=== PATIENT | male | born 1955 | race Caucasian/White ===

== ENCOUNTER 2017-01-23 18:20 | Emergency (ER) | payer SELFPAY ==
[~2017-01-23] VITALS: Ht 172.7 cm; Wt 81.5 kg
[~2017-01-23 18:20] MED LIST: ASPI-535 PO; ATOR20TA38 PO; BENA20TA65 PO; FURO-110 PO; GABA600T PO; LEVO500T10 PO
[2017-01-23 19:14] VITALS: Ht 172.7 cm; Wt 81.5 kg
[2017-01-24] MEDS ORDERED: MELA10CA PO (20:11)
[2017-01-24] MEDS ORDERED: LISI20TA11 PO (20:12)
[2017-01-24] MEDS ORDERED: BEN50 PO (20:12)
[2017-01-24] MEDS ORDERED: ERGO500037 PO (20:12)
[2017-01-24] MEDS ORDERED: FOLI-49 PO (20:13)
[2017-01-24] MEDS ORDERED: CIPR500T4 PO (20:13)
[2017-01-24] MEDS ORDERED: METR500T14 PO (20:14)
== END 2017-01-24 03:02 | disposition left against medical advice (07) ==
LOC: E/R 18:20
DX: Z53.21 Procedure and treatment not carried out due to patient leaving prior to being seen by health care provider (principal)

== ENCOUNTER 2017-01-24 12:04 | Inpatient (IN) | payer OTHER ==
[~2017-01-24] VITALS: Ht 170.2 cm; Wt 81.5 kg
[2017-01-24 17:30] LABS: ADD SCAN DIFF NO
[2017-01-24 17:32] LABS: BASOPHILS % 0.3 % (0.0-2.0); EOSINOPHILS # 0.3 10^3/ul (0.0-0.5); EOSINOPHILS % 2.1 % (0.0-7.0); HEMATOCRIT 31.4 % (42.0-52.0); HEMOGLOBIN 9.9 g/dl (14.0-18.0); LYMPHOCYTES # 1.6 10^3/ul (0.8-2.9); LYMPHOCYTES % 12.8 % (15.0-51.0); MEAN CORPUSCULAR HEMOGLOBIN 27.6 pg (29.0-33.0); MEAN CORPUSCULAR HGB CONC 31.5 g/dl (32.0-37.0); MEAN CORPUSCULAR VOLUME 87.5 fl (82.0-101.0); MEAN PLATELET VOLUME 8.2 fl (7.4-10.4); MONOCYTE # 1.1 10^3/ul (0.3-0.9); MONOCYTES % 8.5 % (0.0-11.0); NEUTROPHIL # 9.5 10^3/ul (1.6-7.5); PLATELET COUNT 633 10^3/UL (140-415); RED BLOOD COUNT 3.59 10^6/ul (4.70-6.10); RED CELL DISTRIBUTION WIDTH 13.9 % (11.5-14.5); WHITE BLOOD COUNT 12.7 10^3/ul (4.8-10.8)
[2017-01-24 17:41] LABS: ALBUMIN 3.8 g/dl (3.3-4.9); CHLORIDE 97 mmol/L (97-110); SODIUM 138 mmol/L (135-144)
[2017-01-24 17:42] LABS: POTASSIUM 4.6 mmol/L (3.5-5.1)
[2017-01-24 17:43] LABS: AMYLASE 45 U/L (11-123)
[2017-01-24 17:44] LABS: ALANINE AMINOTRANSFERASE 25 IU/L (13-69); ALKALINE PHOSPHATASE 99 IU/L (42-121); ANION GAP 20 (8-16); ASPARTATE AMINO TRANSFERASE 23 IU/L (15-46); BILIRUBIN,INDIRECT 0.1 mg/dl (0-1.1); BILIRUBIN,TOTAL 0.1 mg/dl (0.2-1.3); BLOOD UREA NITROGEN 21 mg/dl (7-20); CALCIUM 9.7 mg/dl (8.4-10.2); CARBON DIOXIDE 26 mmol/L (21-31); CREATININE 1.73 mg/dl (0.61-1.24); GLUCOSE 103 mg/dl (70-220); TOTAL PROTEIN 7.6 g/dl (6.1-8.1)
[2017-01-24 17:48] LABS: INR 1.14; PROTIME 14.6 Sec (12.2-14.2); PT RATIO 1.1
[2017-01-24 17:49] LABS: PARTIAL THROMBOPLASTIN TIME 34.5 Sec (25.0-35.0)
[2017-01-24 17:57] LABS: TROPONIN-I < 0.012 ng/ml (0.00-0.12)
[2017-01-24] MEDS ORDERED: CLINDAMYCIN 900 MG/D5W (PMX) 50 ML IVPB STA (19:05)
[2017-01-24] MEDS ORDERED: VANCOMYCIN 1 GM (PMX) 250 ML IVPB STA (19:05)
[2017-01-24] MEDS ORDERED: PIPER-TAZO 3.375 GM IV (PMX) 100 ML IVPB STA (19:05)
--- NOTE | 2017-01-24 19:49 | ERA ---
ER Documentation Chief Complaint Date/Time DATE: 01/24/17 TIME: 19:43 Chief Complaint left foot infection sent by dr tillman for admission. HPI This is a very pleasant 61-year-old male with a known history of type 1 diabetes for the past 54 years. The patient presents to the emergency department with a left foot infection. The patient indicates that in May 2016 he experienced a thermal burn to the plantar surface of the left foot after stepping on hot cement at a pool. The patient had been seen and evaluated at [facility] at [facility] at the time of the injury. He indicates that due to problems with his insurance there have been lapses in his treatment. 1 month ago he began treatment for further infection of the plantar surface of the left foot by Dr. Tillman. He was evaluated yesterday at [address] Tillman's clinic and instructed to immediately come to the emergency department to be further evaluated and admitted for IV antibiotics due to suspected osteomyelitis. The patient states he has had no fevers no shaking or chills. He denies any pain of the left foot but states he has neuropathy due to his diabetes. The patient indicates that he has been compliant with all instructions applying Santyl ointment and changing his dressing every day wrapped with Kerlix ROS All systems reviewed and are negative except as per history of present illness. Medications Home Meds Reported Medications Metronidazole* (Metronidazole*) 500 Mg Tablet, 500 MG PO TID, TAB 01/24/17 Ciprofloxacin Hcl* (Ciprofloxacin Hcl*) 500 Mg Tablet, 500 MG PO BID, #14 TAB 01/24/17 Folic Acid* (Folic Acid*) 1 Mg Tablet, 1 MG PO DAILY, TAB 01/24/17 Diphenhydramine Hcl* (Benadryl*) 50 Mg Cap, 50 MG PO QHS Y for ITCHING, CAP 01/24/17 Lisinopril* (Lisinopril*) 20 Mg Tablet, 20 MG PO DAILY, #30 TAB 01/24/17 Ergocalciferol (Vitamin D2) (VITAMIN D2) 50,000 Unit Capsule, 79492 UNIT PO Q7D , CAP 01/24/17 Melatonin (Melatonin) 10 Mg Capsule, 20 MG PO HS, CAP 01/24/17 Gabapentin* (Neurontin*) 600 Mg Tablet, 600 MG PO TID, TAB 10/09/15 Atorvastatin Calcium* (Atorvastatin Calcium*) 20 Mg Tablet, 20 MG PO HS, TAB 04/07/14 Aspirin Ec (Aspir 81) 81 Mg Tablet.dr, 81 MG PO DAILY 04/07/14 Discontinued Reported Medications Benazepril Hcl* (Lotensin*) 20 Mg Tablet, 20 MG PO DAILY, TAB 04/07/14 Discontinued Scripts Levofloxacin* (Levofloxacin*) 500 Mg Tablet, 500 MG PO DAILY, #4 TAB 1 tablet daily for 4 days Prov:MIRELLA WATKINS 10/15/15 Furosemide* (Lasix*) 20 Mg Tablet, 20 MG PO DAILY for 30 Days, TAB 1 Refill Prov:TOY PRESTON S. 01/14/15 Allergies Allergies: Coded Allergies: No Known Drug Allergies (Unverified Allergy, Unknown, 01/24/17) PMhx/Soc History of Surgery: Yes (lt. shoulder repair, bilat hand surgery,appy,cateracts ,eye surgery,lt knee ) Anesthesia Reaction: No Hx Neurological Disorder: No Hx Respiratory Disorders: No Hx Cardiac Disorders: Yes (htn) Hx Psychiatric Problems: Yes (depression) Hx Miscellaneous Medical Probl: Yes (SHOULDER REPAIR, OBESITY) Hx Alcohol Use: Yes (1-2 beers/ night) Hx Substance Use: No Hx Tobacco Use: No Smoking Status: Never smoker Physical Exam Vitals Vital Signs Date Time Temp Pulse Resp B/P Pulse Ox O2 Delivery O2 Flow Rate FiO2 01/24/17 18:49 83 16 167/77 100 Room Air 01/24/17 12:09 97.8 51 20 162/70 98 Physical Exam Constitutional:Well-developed. Well-nourished. HEENT:Normocephalic. Atraumatic.Pupils were equal round reactive to light. Moist mucous membranes.No tonsillar exudates. Neck: No nuchal rigidity. No lymphadenopathy. No posterior cervical spine tenderness or step-offs. Respiratory: Not using accessory muscles of respiration.Lungs were clear to auscultation bilaterally. No rhonchi. No rales. No wheezing. Cardiovascular: Regular rate regular rhythm.No murmurs. No rubs were appreciated.S1, S2 normal. Distal pulses are palpable 2+ bilaterally. GI: Abdomen was soft. Nontender. Non Distended. No pulsatile abdominal masses or bruits. No rebound. No guarding. Bowel sounds were present and normal. Muscle skeletal: Full range of motion of both the upper and lower extremities bilaterally.Normal muscle tone.No assymetrical calf tenderness or swelling. Skin: No petechia, no purpura. No lesions on the palms or the soles of the feet. No maculopapular rash. Well-circumscribed 2 cm diameter area purulent drainage with stage II ulcer of the lateral aspect of the left proximal fifth metatarsal. No subcutaneous emphysema. NEURO: Patient was alert, awake, orientated x3.No facial droop. Gait observed and normal with no ataxia.Speech had regular rate and rhythm. No focal neurological deficits. Result Diagram: 01/24/17 1720 01/24/17 1720 Results 24 hrs Laboratory Tests Test 01/24/17 17:20 Activated Partial Thromboplast Time 34.5Sec Alanine Aminotransferase (ALT/SGPT) 25IU/L Albumin 3.8g/dl Albumin/Globulin Ratio 1.00 Alkaline Phosphatase 99IU/L Amylase Level 45U/L Anion Gap 20 Aspartate Amino Transf (AST/SGOT) 23IU/L Basophils # 0.010^3/ul Basophils % 0.3% Blood Urea Nitrogen 21mg/dl Calcium Level 9.7mg/dl Carbon Dioxide Level 26mmol/L Chloride Level 97mmol/L Creatinine 1.73mg/dl Direct Bilirubin 0.00mg/dl Eosinophils # 0.310^3/ul Eosinophils % 2.1% Globulin 3.80g/dl Glucose Level 103mg/dl Hematocrit 31.4% Hemoglobin 9.9g/dl INR International Normalized Ratio 1.14 Indirect Bilirubin 0.1mg/dl Lipase 15U/L Lymphocytes # 1.610^3/ul Lymphocytes % 12.8% Mean Corpuscular Hemoglobin 27.6pg Mean Corpuscular Hemoglobin Concent 31.5g/dl Mean Corpuscular Volume 87.5fl Mean Platelet Volume 8.2fl Monocytes # 1.110^3/ul Monocytes % 8.5% Neutrophils # 9.510^3/ul Neutrophils % 75.0% Nucleated Red Blood Cells # 0.010^3/ul Nucleated Red Blood Cells % 0.0/100WBC Platelet Count 99938^3/UL Potassium Level 4.6mmol/L Prothrombin Time 14.6Sec Prothrombin Time Ratio 1.1 Red Blood Count 3.5910^6/ul Red Cell Distribution Width 13.9% Sodium Level 138mmol/L Total Bilirubin 0.1mg/dl Total Protein 7.6g/dl Troponin I < 0.012ng/ml White Blood Count 12.710^3/ul Current Medications Medications (Trade) Dose Ordered Sig/Zelda Route PRN Reason Start Time Stop Time Status Last Admin Dose Admin Vancomycin HCl 250 ml @ 125 mls/hr ONCE STAT IVPB 01/24/17 19:05 01/24/17 21:04 Clindamycin HCl/ Dextrose 50 ml @ 50 mls/hr ONCE STAT IVPB 01/24/17 19:05 01/24/17 20:04 DC Piperacillin Sod/ Tazobactam Sod (Zosyn 3.375gm/ 100 ml (Pmx)) 100 ml @ 100 mls/hr ONCE STAT IVPB 01/24/17 19:05 01/24/17 20:04 DC 01/24/17 19:22 Procedures/MDM The patient presented to the emergency department with a spreading erythematous superficial infection of the skin and subcutaneous tissues of the left foot. My differential diagnosis included but was not limited to necrotizing fasciitis, lymphangitis, thrombophlebitis, deep vein thrombosis, allergic reaction, neoplasm, gout or abscess. Predisposing factors of the progressive spread of erythema, warmth, pain and tenderness was considered such as lymphedema, tinea pedis, open wounds, prior trauma or surgery, pre-existing skin lesion (furuncle), retained foreign body, injection drug use or vascular or immune compromise. The patient was placed on antibiotics to cover Staphylococcus aureus, including resistant strains such as community-acquired methicillin-resistant S. aureus with broad-spectrum antibiotics as I was concerned with osteomyelitis. The patient received IV clindamycin vancomycin and Zosyn after blood cultures and wound cultures have been obtained. I placed a call to the patient's loan administrator Dr. Tillman to inform him that the patient is here in the emergency department. I have ordered an MRI to be obtained at the left foot. The patient had mild leukocytosis with a white blood cell count of 12.7. The patient's blood glucose was 103 with no evidence of ketosis. The patient will be admitted in serious condition to the hospitalist Dr. Preston with an anticipated stay of greater than 2 midn[address]. I spoke with Dr. Tillman on the phone he stated he will be consulted on the patient. I also spoke with Keon, the nurse practitioner for Dr. Hayes who kindly stated they will also evaluate the patient from an infectious disease perspective Departure Diagnosis: Primary Impression: Osteomyelitis Qualified Code: M86.172 - Acute osteomyelitis of left foot Condition: Serious MILINDBOBBY Jan 24, 2017 19:48
[2017-01-24] MEDS ORDERED: ONDANSETRON 4 MG INJ IV PRN ×2 (20:00→20:30)
[2017-01-24] MEDS ORDERED: ACETAMINOPHEN 325 MG TAB PO PRN ×2 (20:00→20:30)
[2017-01-24] MEDS ORDERED: MELA10CA PO (20:11)
[2017-01-24] MEDS ORDERED: BEN50 PO (20:12)
[2017-01-24] MEDS ORDERED: ERGO500037 PO (20:12)
[2017-01-24] MEDS ORDERED: LISI20TA11 PO (20:12)
[2017-01-24] MEDS ORDERED: CIPR500T4 PO (20:13)
[2017-01-24] MEDS ORDERED: FOLI-49 PO (20:13)
[2017-01-24] MEDS ORDERED: METR500T14 PO (20:14)
[2017-01-24] MEDS ORDERED: DOCUSATE SODIUM 100 MG CAP PO PRN (20:30)
[2017-01-24] MEDS ORDERED: NACL 0.9% 3 ML SYG IV SCH (20:30)
[2017-01-24] MEDS ORDERED: LORAZEPAM 2 MG INJ IV PRN (20:30)
[2017-01-24] MEDS ORDERED: NA PHOSPHATE/BIPHOS 133 ML ENEMA PR PRN (20:30)
[2017-01-24] MEDS ORDERED: ALBUTEROL/IPRATROPIUM (NEB) 3 ML AMP HHN PRN (20:30)
[2017-01-24] MEDS ORDERED: hydrALAzine 20 MG INJ IV PRN (20:30)
[2017-01-24] MEDS ORDERED: VANCOMYCIN IV PER PHARMACY XX SCH (20:30)
[2017-01-24] MEDS ORDERED: NITROGLYCERIN (SL) 0.4 MG TAB SL PRN (20:30)
[2017-01-24] MEDS ORDERED: morphine 2 MG INJ IV PRN (20:30)
[2017-01-24] MEDS ORDERED: MAGNESIUM HYDROXIDE 30ML CUP PO PRN (20:30)
[2017-01-24] MEDS ORDERED: HYDROCODONE/APAP (5/325) TAB PO PRN (20:30)
[2017-01-24] MEDS ORDERED: GLUCOSE GEL 15 GRAM TUBE BUCCAL PRN (21:00)
[2017-01-24] MEDS ORDERED: GLUCOSE GEL 15 GRAM TUBE PO PRN ×2 (21:00)
[2017-01-24] MEDS ORDERED: MELATONIN 20 MG PO SCH (21:00)
[2017-01-24] MEDS ORDERED: GLUCAGON 1 MG INJ IM PRN (21:00)
[2017-01-24] MEDS ORDERED: DEXTROSE 50% 50 ML SYRINGE IV PRN ×2 (21:00)
[2017-01-24] MEDS ORDERED: GABAPENTIN 300 MG CAP PO SCH (21:00)
[2017-01-24 21:48] LABS: INR 1.16; PROTIME 14.8 Sec (12.2-14.2); PT RATIO 1.2
[2017-01-24 21:49] LABS: PARTIAL THROMBOPLASTIN TIME 33.9 Sec (25.0-35.0)
[2017-01-24 22:00] VITALS: Ht 170.2 cm; Wt 81.5 kg
[2017-01-24] MEDS: INSULIN ASPART [NOVOLOG] 3 ML PEN SC SCH (22:00)
[2017-01-24 22:30] VITALS: BP 158/72; PULSE 50; RESP 20
[2017-01-24] MEDS ORDERED: VANCOMYCIN 500MG/NS (PMX) 100 ML IVPB ONE (23:00)
[2017-01-24] MEDS: HEPARIN 5,000 UNIT/0.5 ML SYG SC SCH (23:38)
[2017-01-25] MEDS: INSULIN ASPART [NOVOLOG] 3 ML PEN SC SCH ×6 (01:00→20:32)
--- NOTE | 2017-01-25 01:30 | RADRPT ---
PROCEDURE: MR Foot. CLINICAL INDICATION: N TECHNIQUE: Noncontrast MRI of the left foot, with axial, sagittal and coronal images. T1-weighted and STIR sequences were employed. COMPARISON: No prior studies are available for comparison. FINDINGS: Abnormal signal on T1-weighted and fluid-sensitive sequences within the entire fifth metatarsal comp atible with osteomyelitis. Soft tissue defect at the lateral aspect of the expected location of the head of the fifth metatarsal, with full-thickness ulceration extending from the skin to the perioste um of the fifth metatarsal, and there is a fluid collection over the diaphysis of the fifth metatars al, suggesting an abscess. This fluid collection also appears to be contiguous with the periosteum o f the fifth metatarsal, at least distally. Plain film examination would be of further use to evaluate extent of osseous destruction in the fift h metatarsal. Today's MRI series suggests complete or near complete destruction of the head of the fifth metatarsal. Remaining osseous structures without evident osteomyelitis. Soft tissue edema over the foot. Increa sed fluid signal within the interosseous muscles of the forefoot can be seen in association with ear ly neuropathic changes. IMPRESSION: 1. Osteomyelitis of the entire fifth metatarsal of the left foot, with complete versus near complet e destruction of the head of the fifth metatarsal. 2. Soft tissue ulceration at the lateral aspect of the expected location of the head of the fifth m etatarsal, with fistulous connection between the skin and the periosteum of the fifth metatarsal. 3. Fluid collection over the diaphysis of the fifth metatarsal suggesting abscess. 4. Remaining osseous structures are without evident osteomyelitis. RPTAT: [facility] Physician Jil Date Time Electronically viewed and signed by Physician Jil on 01/25/2017 01:30 RS/
[2017-01-25] MEDS: PIPER-TAZO 3.375 GM IV (PMX) 100 ML IVPB SCH ×4 (01:37→17:31)
[2017-01-25] MEDS: ATORVASTATIN 20 MG TAB PO SCH (02:06)
[2017-01-25] MEDS: GABAPENTIN 300 MG CAP PO SCH (02:06)
[2017-01-25] MEDS: SOD CHLORIDE 0.45% 1,000 ML IV SCH ×4 (02:08→22:59)
[2017-01-25] MEDS: DIPHENHYDRAMINE 50 MG CAP PO PRN (02:08)
[2017-01-25] MEDS ORDERED: MELATONIN 10 MG PO SCH (02:25)
[2017-01-25] MEDS: MELATONIN 10 MG PO SCH (02:29)
[2017-01-25] MEDS: PANTOPRAZOLE (EC) 40 MG TAB PO SCH (05:35)
[2017-01-25] MEDS ORDERED: PIPER-TAZO 2.25 GM (PMX) 50 ML IVPB SCH (06:00)
--- NOTE | 2017-01-25 06:22 | HP ---
DATE OF ADMISSION: 01/24/2017 CHIEF COMPLAINT: Left foot pain and infection. HISTORY OF PRESENT ILLNESS: A 61-year-old male with a past medical history of peripheral vascular d isease, type 1 diabetes, depression and hypertension, who comes in with left foot infection and pain . Apparently, the patient first started having symptoms in May of 2016 after experiencing a burn t o the plantar surface of the left foot. Over that time he has been treated off and on sporadically for foot infections and has been seeing most recently Dr. Olvin Tillman, the enterprise applications manager[facility]. Apparently, he was instructed by Dr. Tillman's clinic to come to the emergency room due to suspected osteomyelitis of the left foot. Denies fevers or chills. No upper or lower GI bl eeding. No diarrhea or constipation, no nausea or vomiting. Apparently, the patient has been compl iant with applying Santyl ointment at home and changing his dressings every day, and wrap with Kerli x. When he came into the ER today, he had a MRI of the foot performed that did show osteomyelitis of the entire fifth metatarsal of the left foot, with complete versus near complete destruction of the head of the 5th metatarsal. There is soft tissue ulceration at the lateral aspect of the expected l ocation of the head of the 5th metatarsal, with fistulous connection between the skin and the perios teum of the 5th metatarsal, fluid collection over the diaphysis of the 5th metatarsal, suggesting ab scess. Remaining osseous structures are without evident osteomyelitis. The patient received an ant ibiotic dose in the ER. PAST MEDICAL HISTORY: As stated above. ALLERGIES: NO KNOWN DRUG ALLERGIES. HOME MEDICATIONS: 1. Benadryl 50 mg at bedtime p.r.n. 2. Ciprofloxacin 500 mg b.i.d. 3. Flagyl 500 mg p.o. t.i.d. 4. Atorvastatin 20 mg at bedtime. 5. Lisinopril 20 mg daily. 6. Aspirin 81 mg daily. 7. Gabapentin 600 mg t.i.d. 8. Vitamin D2 50,000 units q. weekly. 9. Folic acid 1 mg daily. 10. Melatonin 20 mg at bedtime. PAST SURGICAL HISTORY: It looks like shoulder repair in the past, bilateral hand surgery in the pas t, appendectomy in the past, cataract surgery in the past, and knee surgery in the past. SOCIAL HISTORY: Negative for IV drug abuse or smoking, but he does drink 1 to 2 beers a night. FAMILY HISTORY: Noncontributory. PHYSICAL EXAMINATION: VITAL SIGNS: Today T-max 97.8, pulse 51 to 83, respirations 16 to 20, blood pressure 167/77, satura ting at 100% on room air. GENERAL: The patient is lying in bed, answering questions appropriately, in no acute distress. HEENT: Pupils are equal, round, and react to light. Extraocular muscles intact. NECK: Supple. No thyromegaly. LUNGS: Clear to auscultation bilaterally. CARDIOVASCULAR: S1, S2 heard. No rubs or gallops. ABDOMEN: Soft, nontender, nondistended. Normal bowel sounds. No rebound or guarding. MUSCULOSKELETAL: On the left foot there is a well circumscribed 2-cm diameter area with purulent dr ainage and ulcer on the lateral aspect of the left proximal 5th metatarsal. Otherwise no lower extre mity edema bilaterally. NEUROLOGIC: No focal deficits. LABORATORIES: WBC 12.7, hemoglobin 9.9, hematocrit 31.4, platelets 633. Sodium 138, potassium 4.6, chloride 97, CO2 26, BUN 21, creatinine 1.7, glucose 103. LFTs are normal. Troponin is negative x 1. Lipase was normal. Amylase was normal. The imaging studies as mentioned above in the HPI. ASSESSMENT AND PLAN: A 61-year-old male with left foot pain and swelling, with signs of abscess and left foot osteomyelitis of the 5th metatarsals. 1. Left foot pain secondary most likely to left foot osteomyelitis and abscess. Admit the patient to the med/surg floor. Will get a podiatry and infectious disease consult, put him on broad-spectru m antibiotics, get wound culture, follow up blood culture results. Check TSH, A1c, lipid panel. Ty lenol p.r.n. pain and fevers. Morphine and Ault p.r.n. for pain. 2. Type 1 diabetes. Follow up A1c results and put the patient on sliding scale insulin. 3. History of peripheral vascular disease. Again, continue current medications of aspirin and Neur ontin. 4. History of hypertension. Blood pressure is presently high normal range. Continue hydralazine a nd clonidine p.r.n. for greater than 160. 5. Gastrointestinal prophylaxis. PPI. 6. Deep venous thrombosis prophylaxis. Heparin subcutaneously. Dictated By: TOY MARQUIS Conf#: [id number] DID#: [id number]
[2017-01-25 06:31] LABS: ADD SCAN DIFF NO
[2017-01-25 06:41] LABS: BASOPHIL # 0.1 10^3/ul (0.0-0.1); BASOPHILS % 0.5 % (0.0-2.0); EOSINOPHILS # 0.4 10^3/ul (0.0-0.5); EOSINOPHILS % 2.5 % (0.0-7.0); HEMATOCRIT 28.7 % (42.0-52.0); HEMOGLOBIN 9.3 g/dl (14.0-18.0); LYMPHOCYTES # 2.4 10^3/ul (0.8-2.9); LYMPHOCYTES % 17.1 % (15.0-51.0); MEAN CORPUSCULAR HEMOGLOBIN 28.3 pg (29.0-33.0); MEAN CORPUSCULAR HGB CONC 32.4 g/dl (32.0-37.0); MEAN CORPUSCULAR VOLUME 87.2 fl (82.0-101.0); MEAN PLATELET VOLUME 8.7 fl (7.4-10.4); MONOCYTE # 1.4 10^3/ul (0.3-0.9); MONOCYTES % 10.4 % (0.0-11.0); NEUTROPHIL # 9.6 10^3/ul (1.6-7.5); NEUTROPHILS % 68.7 % (39.0-77.0); PLATELET COUNT 648 10^3/UL (140-415); RED BLOOD COUNT 3.29 10^6/ul (4.70-6.10); WHITE BLOOD COUNT 13.9 10^3/ul (4.8-10.8)
[2017-01-25 07:09] LABS: POTASSIUM 4.3 mmol/L (3.5-5.1)
[2017-01-25 07:11] LABS: CREATININE 1.71 mg/dl (0.61-1.24)
[2017-01-25 07:12] LABS: CALCIUM 8.7 mg/dl (8.4-10.2); PHOSPHORUS 3.6 mg/dl (2.5-4.9)
[2017-01-25 07:13] LABS: CHOL/HDL RATIO 3.5 RATIO; MAGNESIUM 1.8 mg/dl (1.7-2.5)
[2017-01-25 07:33] LABS: THYROID STIMULATING HORMONE 1.19 MIU/L (0.465-4.680)
[2017-01-25 08:39] VITALS: BP 122/54; RESP 18
[2017-01-25 08:45] LABS: ADD UMIC YES; URINE BILIRUBIN (Dip) NEGATIVE (NEGATIVE); URINE BLOOD (Dip) TRACE (NEGATIVE); URINE COLOR LT. YELLOW (YELLOW); URINE GLUCOSE (Dip) NEGATIVE (NEGATIVE); URINE KETONES (Dip) NEGATIVE (NEGATIVE); URINE LEUKOCYTE ESTERASE (Dip) NEGATIVE (NEGATIVE); URINE NITRITE (Dip) NEGATIVE (NEGATIVE); URINE TOTAL PROTEIN (Dip) 1+ (NEGATIVE); URINE UROBILINOGEN (Dip) 0.2 E.U./dL (0.1-1.0)
[2017-01-25] MEDS ORDERED: FOLIC ACID 1 MG TAB PO SCH (09:00)
[2017-01-25] MEDS ORDERED: ASPIRIN (EC) 81 MG TAB PO SCH (09:00)
[2017-01-25 09:35] LABS: URINE RBCS 0-2 /HPF (0)
[2017-01-25] MEDS: HUMALOG PUMP SC SCH ×3 (09:59→17:34)
[2017-01-25] MEDS ORDERED: VANCOMYCIN 1.25 GM in SOD CHLORIDE 0.9% 250 ML IVPB SCH ×2 (11:00→22:00)
[2017-01-25] MEDS: HEPARIN 5,000 UNIT/0.5 ML SYG SC SCH ×2 (11:57→20:34)
[2017-01-25] MEDS: COLLAGENASE 30 GM TUBE TOP SCH (17:31)
--- NOTE | 2017-01-25 17:32 | CONS ---
Date/Time of Note Date/Time of Note DATE: 01/25/17 TIME: 17:27 Assessment/Plan Assessment/Plan Chief Complaint/Hosp Course SIRS L foot cellulitis/OM/abscess DM PVD HTN ARF Anemia Abx: Vanco Zosyn Plan: Continue abx, f/u final cx, podiatry rec-s, MRSA swab [facility] staff Problems: Consultation Date/Type/Reason Admit Date/Time Jan 24, 2017 at 19:34 Type of Consultation: ID Referring Provider: TOY PRESTON Social History Smoking Status: Never smoker Exam/Review of Systems Vital Signs Vitals Vital Signs Date Time Temp Pulse Resp B/P Pulse Ox O2 Delivery O2 Flow Rate FiO2 01/25/17 08:39 99.7 47 18 122/54 95 01/24/17 22:30 Room Air Intake and Output 01/24/17 01/24/17 01/25/17 15:00 23:00 07:00 Intake Total 1025 ml Balance 1025 ml Results Result Diagram: 01/25/17 0541 01/25/17 0541 Results 24 hrs Laboratory Tests Test 01/24/17 20:45 01/25/17 05:30 01/25/17 05:41 01/25/17 06:06 Activated Partial Thromboplast Time 33.9 Free Thyroxine 1.14 INR International Normalized Ratio 1.16 Prothrombin Time 14.8 H Prothrombin Time Ratio 1.2 Bedside Glucose 59 L 159 Anion Gap 17 H Basophils # 0.1 Basophils % 0.5 Blood Urea Nitrogen 19 Calcium Level 8.7 Carbon Dioxide Level 27 Chloride Level 99 Cholesterol Level 92 L Cholesterol/HDL Ratio 3.5 Creatinine 1.71 H Eosinophils # 0.4 Eosinophils % 2.5 Glucose Level 48 #*L HDL Cholesterol 26 L Hematocrit 28.7 L Hemoglobin 9.3 L Hemoglobin A1c 10.9 H LDL Cholesterol, Calculated 44 Lymphocytes # 2.4 Lymphocytes % 17.1 Magnesium Level 1.8 Mean Corpuscular Hemoglobin 28.3 L Mean Corpuscular Hemoglobin Concent 32.4 Mean Corpuscular Volume 87.2 Mean Platelet Volume 8.7 Monocytes # 1.4 H Monocytes % 10.4 Neutrophils # 9.6 H Neutrophils % 68.7 Nucleated Red Blood Cells # 0.0 Nucleated Red Blood Cells % 0.0 Phosphorus Level 3.6 Platelet Count 648 H Potassium Level 4.3 Red Blood Count 3.29 L Red Cell Distribution Width 14.0 Sodium Level 139 Thyroid Stimulating Hormone (TSH) 1.190 Triglycerides Level 109 White Blood Count 13.9 H Test 01/25/17 06:30 01/25/17 08:17 01/25/17 12:05 01/25/17 17:25 Urine Bilirubin NEGATIVE Urine Clarity CLEAR Urine Color LT. YELLOW Urine Glucose NEGATIVE Urine Hemoglobin TRACE Urine Ketones NEGATIVE Urine Leukocyte Esterase NEGATIVE Urine Microscopic RBC 0-2 Urine Microscopic WBC NONE SEEN Urine Nitrite NEGATIVE Urine Specific Monon 1.015 Urine Total Protein 1+ H Urine Urobilinogen 0.2 E.U./dL Urine pH 5.5 Bedside Glucose 164 117 96 Medications Medications Current Medications Ondansetron HCl (Zofran Inj) 4 mg Q6H PRN IV NAUSEA AND/OR VOMITING; Start at 20:30 Acetaminophen (Tylenol Tab) 650 mg Q6H PRN PO PAIN LEVEL 1-3 OR FEVER; Start at 20:30 Acetaminophen/ Hydrocodone Bitart ([place] (5/325)) 1 tab Q6H PRN PO MODERATE PAIN LEVEL 4-6; Start 01/24/17 at 20:30 Morphine Sulfate (morphine) 2 mg Q4H PRN IV SEVERE PAIN LEVEL 7-10; Start 01/24 at 20:30 Docusate Sodium (Colace) 100 mg Q12H PRN PO CONSTIPATION; Start 01/24/17 at 20: 30 Magnesium Hydroxide (Milk Of Mag) 30 ml DAILY PRN PO CONSTIPATION; Start at 20:30 Sodium Biphosphate/ Sodium Phosphate (Fleet Enema) [address] CONSTIPATION; Start 01/24/17 at 20:30 Pantoprazole (Protonix Tab) 40 mg DAILY@06 PO Last administered on 01/25/17 05 :35; Admin Dose 40 MG; Start 01/25/17 at 06:00 Heparin Sodium (Porcine) 5000 unit 5,000 unit Q12 SC Last administered on 11:57; Admin Dose 5,000 UNIT; Start 01/24/17 at 21:00 Sodium Chloride (1/2 NS) 1,000 ml @ 75 mls/hr [id number] IV Last administered on 01/25/17 02:08; Admin Dose 75 MLS/HR; Start 01/24/17 at 20:19 Lorazepam 0.5 mg 0.5 mg Q6H PRN IV ANXIETY; Start 01/24/17 at 20:30 Piperacillin Sod/ Tazobactam Sod (Zosyn 3.375gm/ 100 ml (Pmx)) 100 ml @ 200 mls /hr Q6 IVPB Last administered on 01/25/17 11:51; Admin Dose 200 MLS/HR; Start 01/25/17 at 00:00 Vancomycin HCl (Vanco Iv Per Pharmacy) VANCOMYCIN PER PHARMACY NOTE XX ; Start 01/24/17 at 20:30 Hydralazine HCl (Apresoline) 10 mg Q6H PRN IV ELEVATED BLOOD PRESSURE; Start at 20:30 Clonidine (Catapres) 0.1 mg Q6H PRN PO ELEVATED BLOOD PRESSURE; Start 01/24/17 at 20:30 Nitroglycerin (Nitroglycerin (Sl Tab) 0.4 Mg) 1 tab Q5M PRN SL ANGINA; Start at 20:30 Insulin Aspart (Novolog Insulin Pen) NOVOLOG *MILD* ALGORI... Q4 SC ; Start at 21:00 Atorvastatin Calcium (Lipitor) 20 mg HS PO Last administered on 01/25/17 02:06 ; Admin Dose 20 MG; Start 01/24/17 at 21:00 Diphenhydramine HCl (Benadryl) 50 mg QHS PRN PO sleep Last administered on 01/25 02:08; Admin Dose 50 MG; Start 01/24/17 at 20:30 Ergocalciferol (Drisdol) 50,000 unit Fr@09 PO ; Start 01/31/17 at 09:00 Miscellaneous Information 1 ea NOTE XX ; Start 01/24/17 at 21:00 Glucose (Glutose) 15 gm Q15M PRN PO DECREASED GLUCOSE; Start 01/24/17 at 21:00 Glucose (Glutose) 22.5 gm Q15M PRN PO DECREASED GLUCOSE; Start 01/24/17 at 21: 00 Dextrose (D50w Syringe) 25 ml Q15M PRN IV DECREASED GLUCOSE; Start 01/24/17 at 21:00 Dextrose (D50w Syringe) 50 ml Q15M PRN IV DECREASED GLUCOSE; Start 01/24/17 at 21:00 Glucagon (Glucagen) 1 mg Q15M PRN IM DECREASED GLUCOSE; Start 01/24/17 at 21:00 Glucose (Glutose) 15 gm Q15M PRN BUCCAL DECREASED GLUCOSE; Start 01/24/17 at 21 :00 Gabapentin (Neurontin) 1,800 mg HS PO Last administered on 01/25/17 02:06; Admin Dose 1,800 MG; Start 01/25/17 at 01:31 Patient Own Medication 2 ea HS PO Last administered on 01/25/17 02:29; Admin Dose 2 EA; Start 01/25/17 at 21:00 Influenza Virus Vaccine 0.5 ml 0.5 ml ONCE ONCE IM* ; Start 01/28/17 at 09:00; Stop 01/28/17 at 09:01 Vancomycin HCl/ Sodium Chloride (Vancocin/NS) 250 ml @ 83.333 mls/ hr Q24H IVPB ; Start 01/25/17 at 22:00 Aspirin (Halfprin) 81 mg HS PO ; Start 01/25/17 at 21:00 Folic Acid (Folic Acid) 1 mg HS PO ; Start 01/25/17 at 21:00 Collagenase (Santyl) 1 applic DAILY TOP ; Start 01/25/17 at 17:00 REBEKAH SEGAL NP Jan 25, 2017 17:32 REBEKAH SEGAL NP Jan 25, 2017 17:32
[2017-01-25 21:27] VITALS: BP 124/57; RESP 18
[2017-01-26] MEDS: INSULIN ASPART [NOVOLOG] 3 ML PEN SC SCH ×5 (01:00→16:23)
[2017-01-26] MEDS: GABAPENTIN 300 MG CAP PO SCH (02:01)
[2017-01-26] MEDS: ASPIRIN (EC) 81 MG TAB PO SCH (02:02)
[2017-01-26] MEDS: DIPHENHYDRAMINE 50 MG CAP PO PRN (02:02)
[2017-01-26] MEDS: ATORVASTATIN 20 MG TAB PO SCH (02:02)
[2017-01-26] MEDS: FOLIC ACID 1 MG TAB PO SCH (02:02)
[2017-01-26] MEDS: MELATONIN 10 MG PO SCH (02:04)
[2017-01-26] MEDS: PIPER-TAZO 3.375 GM IV (PMX) 100 ML IVPB SCH ×5 (02:11→23:55)
[2017-01-26 05:23] LABS: ADD SCAN DIFF NO
[2017-01-26 05:28] LABS: BASOPHIL # 0.1 10^3/ul (0.0-0.1); BASOPHILS % 0.7 % (0.0-2.0); EOSINOPHILS # 0.3 10^3/ul (0.0-0.5); EOSINOPHILS % 3.5 % (0.0-7.0); HEMATOCRIT 25.6 % (42.0-52.0); HEMOGLOBIN 8.2 g/dl (14.0-18.0); LYMPHOCYTES # 1.4 10^3/ul (0.8-2.9); MEAN CORPUSCULAR VOLUME 87.4 fl (82.0-101.0); MEAN PLATELET VOLUME 8.7 fl (7.4-10.4); MONOCYTE # 0.8 10^3/ul (0.3-0.9); MONOCYTES % 9.2 % (0.0-11.0); NEUTROPHIL # 6.5 10^3/ul (1.6-7.5); NEUTROPHILS % 70.6 % (39.0-77.0); PLATELET COUNT 530 10^3/UL (140-415); RED BLOOD COUNT 2.93 10^6/ul (4.70-6.10); RED CELL DISTRIBUTION WIDTH 13.9 % (11.5-14.5); WHITE BLOOD COUNT 9.2 10^3/ul (4.8-10.8)
[2017-01-26 05:36] LABS: POTASSIUM 4.6 mmol/L (3.5-5.1)
[2017-01-26 05:39] LABS: CALCIUM 8.4 mg/dl (8.4-10.2); CREATININE 1.7 mg/dl (0.61-1.24)
[2017-01-26] MEDS: PANTOPRAZOLE (EC) 40 MG TAB PO SCH (06:00)
[2017-01-26 08:28] VITALS: BP 131/63; RESP 16
[2017-01-26] MEDS: COLLAGENASE 30 GM TUBE TOP SCH ×2 (08:39→12:04)
[2017-01-26] MEDS: HEPARIN 5,000 UNIT/0.5 ML SYG SC SCH (08:39)
[2017-01-26] MEDS: SOD CHLORIDE 0.45% 1,000 ML IV SCH ×2 (13:19→17:29)
--- NOTE | 2017-01-26 15:24 | PN ---
Date/Time of Note Date/Time of Note DATE: 01/26/17 TIME: 15:16 Assessment/Plan VTE Prophylaxis VTE Prophylaxis Intervention: heparin Lines/Catheters IV Catheter Type (from Nrs): Peripheral IV Urinary Cath still in place: No Assessment/Plan Assessment/Plan A 61-year-old male with left foot pain and swelling, with signs of abscess and left foot osteomyelitis of the 5th metatarsals. 1. Left foot 5th toe osteomyelitis and abscess. (Staph aureus, alpha hemolytic strep) 2. Type 1 diabetes with polyneuropathy. A1c 10.2 3. Chronic peripheral vascular disease. Again, continue current medications of aspirin and Neurontin. 4. History of hypertension. Blood pressure is presently high normal range. Continue hydralazine and clonidine p.r.n. for greater than 160. 5. CKD (?DM nephropathy) 6. Anemia 7. Dyslipidemia (low HDL) PLAN: Continue abx Await podiatry review and recs Endo consult for insulin pump mgt Serial labs Supportive care Gastrointestinal prophylaxis. PPI. Deep venous thrombosis prophylaxis. Heparin subcutaneously. Subjective 24 Hr Interval Summary Free Text/Dictation anxious about MRI, wants to speak with Dr iBshop Exam/Review of Systems Vital Signs Vitals Vital Signs Date Time Temp Pulse Resp B/P Pulse Ox O2 Delivery O2 Flow Rate FiO2 01/26/17 08:28 98.3 64 16 131/63 97 01/24/17 22:30 Room Air Intake and Output 01/25/17 01/25/17 01/26/17 15:00 23:00 07:00 Intake Total 100 ml 1605 ml 1310 ml Balance 100 ml 1605 ml 1310 ml Exam Constitutional: alert, oriented Head: normocephalic Eyes: PERRL Respiratory: clear to auscultation, normal air movement Cardiovascular: nl pulses, regular rate and rhythm Gastrointestinal: bowel sounds, non-tender, soft Extremities: other (L foot bandaged ) Results Result Diagram: 01/26/17 0450 01/26/17 0450 Results 24 hrs Laboratory Tests Test 01/25/17 17:25 01/25/17 20:30 01/26/17 01:23 01/26/17 04:50 Bedside Glucose 96 135 206 Anion Gap 17 H Basophils # 0.1 Basophils % 0.7 Blood Urea Nitrogen 16 Calcium Level 8.4 Carbon Dioxide Level 25 Chloride Level 99 Creatinine 1.70 H Eosinophils # 0.3 Eosinophils % 3.5 Glucose Level 133 # Hematocrit 25.6 L Hemoglobin 8.2 L Lymphocytes # 1.4 Lymphocytes % 15.0 Magnesium Level 1.8 Mean Corpuscular Hemoglobin 28.0 L Mean Corpuscular Hemoglobin Concent 32.0 Mean Corpuscular Volume 87.4 Mean Platelet Volume 8.7 Monocytes # 0.8 Monocytes % 9.2 Neutrophils # 6.5 Neutrophils % 70.6 Nucleated Red Blood Cells # 0.0 Nucleated Red Blood Cells % 0.0 Platelet Count 530 H Potassium Level 4.6 Red Blood Count 2.93 L Red Cell Distribution Width 13.9 Sodium Level 136 White Blood Count 9.2 # Test 01/26/17 06:04 01/26/17 07:50 01/26/17 11:49 Bedside Glucose 155 109 108 Medications Medications Current Medications Ondansetron HCl (Zofran Inj) 4 mg Q6H PRN IV NAUSEA AND/OR VOMITING; Start at 20:30 Acetaminophen (Tylenol Tab) 650 mg Q6H PRN PO PAIN LEVEL 1-3 OR FEVER; Start at 20:30 Acetaminophen/ Hydrocodone Bitart ([place] (5/325)) 1 tab Q6H PRN PO MODERATE PAIN LEVEL 4-6; Start 01/24/17 at 20:30 Morphine Sulfate (morphine) 2 mg Q4H PRN IV SEVERE PAIN LEVEL 7-10; Start 01/24 at 20:30 Docusate Sodium (Colace) 100 mg Q12H PRN PO CONSTIPATION; Start 01/24/17 at 20: 30 Magnesium Hydroxide (Milk Of Mag) 30 ml DAILY PRN PO CONSTIPATION; Start at 20:30 Sodium Biphosphate/ Sodium Phosphate (Fleet Enema) 133 ml DAILY PRN [place] CONSTIPATION; Start 01/24/17 at 20:30 Pantoprazole (Protonix Tab) 40 mg DAILY@06 PO Last administered on 01/25/17 05 :35; Admin Dose 40 MG; Start 01/25/17 at 06:00 Heparin Sodium (Porcine) 5000 unit 5,000 unit Q12 SC Last administered on 08:39; Admin Dose 5,000 UNIT; Start 01/24/17 at 21:00 Sodium Chloride (1/2 NS) 1,000 ml @ 75 mls/hr [id number] IV Last administered on 01/25/17 17:32; Admin Dose 75 MLS/HR; Start 01/24/17 at 20:19 Lorazepam 0.5 mg 0.5 mg Q6H PRN IV ANXIETY; Start 01/24/17 at 20:30 Piperacillin Sod/ Tazobactam Sod (Zosyn 3.375gm/ 100 ml (Pmx)) 100 ml @ 200 mls /hr Q6 IVPB Last administered on 01/26/17 13:19; Admin Dose 200 MLS/HR; Start 01/25/17 at 00:00 Vancomycin HCl (Vanco Iv Per Pharmacy) VANCOMYCIN PER PHARMACY NOTE XX ; Start 01/24/17 at 20:30 Hydralazine HCl (Apresoline) 10 mg Q6H PRN IV ELEVATED BLOOD PRESSURE; Start at 20:30 Clonidine (Catapres) 0.1 mg Q6H PRN PO ELEVATED BLOOD PRESSURE; Start 01/24/17 at 20:30 Nitroglycerin (Nitroglycerin (Sl Tab) 0.4 Mg) 1 tab Q5M PRN SL ANGINA; Start at 20:30 Insulin Aspart (Novolog Insulin Pen) NOVOLOG *MILD* ALGORI... Q4 SC ; Start at 21:00 Atorvastatin Calcium (Lipitor) 20 mg HS PO Last administered on 01/26/17 02:02 ; Admin Dose 20 MG; Start 01/24/17 at 21:00 Diphenhydramine HCl (Benadryl) 50 mg QHS PRN PO sleep Last administered on 01/26 02:02; Admin Dose 50 MG; Start 01/24/17 at 20:30 Ergocalciferol (Drisdol) 50,000 unit Fr@09 PO ; Start 01/31/17 at 09:00 Miscellaneous Information 1 ea NOTE XX ; Start 01/24/17 at 21:00 Glucose (Glutose) 15 gm Q15M PRN PO DECREASED GLUCOSE; Start 01/24/17 at 21:00 Glucose (Glutose) 22.5 gm Q15M PRN PO DECREASED GLUCOSE; Start 01/24/17 at 21: 00 Dextrose (D50w Syringe) 25 ml Q15M PRN IV DECREASED GLUCOSE; Start 01/24/17 at 21:00 Dextrose (D50w Syringe) 50 ml Q15M PRN IV DECREASED GLUCOSE; Start 01/24/17 at 21:00 Glucagon (Glucagen) 1 mg Q15M PRN IM DECREASED GLUCOSE; Start 01/24/17 at 21:00 Glucose (Glutose) 15 gm Q15M PRN BUCCAL DECREASED GLUCOSE; Start 01/24/17 at 21 :00 Gabapentin (Neurontin) 1,800 mg HS PO Last administered on 01/26/17 02:01; Admin Dose 1,800 MG; Start 01/25/17 at 01:31 Patient Own Medication 2 ea HS PO Last administered on 01/26/17 02:04; Admin Dose 2 EA; Start 01/25/17 at 21:00 Influenza Virus Vaccine 0.5 ml 0.5 ml ONCE ONCE IM* ; Start 01/28/17 at 09:00; Stop 01/28/17 at 09:01 Vancomycin HCl/ Sodium Chloride (Vancocin/NS) 250 ml @ 83.333 mls/ hr Q24H IVPB Last administered on 01/25/17 23:24; Admin Dose 83.333 MLS/HR; Start at 22:00 Aspirin (Halfprin) 81 mg HS PO Last administered on 01/26/17 02:02; Admin Dose 81 MG; Start 01/25/17 at 21:00 Folic Acid (Folic Acid) 1 mg HS PO Last administered on 01/26/17 02:02; Admin Dose 1 MG; Start 01/25/17 at 21:00 Collagenase (Santyl) 1 applic DAILY TOP Last administered on 01/26/17 12:04; Admin Dose 1 APPLIC; Start 01/25/17 at 17:00 Miscellaneous Information (*Rx Drug Level Order Reminder*) VANCOMYCIN TROUGH AT 2100 ONCE ONCE XX ; Start 01/26/17 at 21:00; Stop 01/26/17 at 21:01 Procedures Procedures PROCEDURE: MR Foot. CLINICAL INDICATION: N TECHNIQUE: Noncontrast MRI of the left foot, with axial, sagittal and coronal images. T1-weighted and STIR sequences were employed. COMPARISON: No prior studies are available for comparison. FINDINGS: Abnormal signal on T1-weighted and fluid-sensitive sequences within the entire fifth metatarsal compatible with osteomyelitis. Soft tissue defect at the lateral aspect of the expected location of the head of the fifth metatarsal, with full-thickness ulceration extending from the skin to the periosteum of the fifth metatarsal, and there is a fluid collection over the diaphysis of the fifth metatarsal, suggesting an abscess. This fluid collection also appears to be contiguous with the periosteum of the fifth metatarsal, at least distally. Plain film examination would be of further use to evaluate extent of osseous destruction in the fifth metatarsal. Today's MRI series suggests complete or near complete destruction of the head of the fifth metatarsal. Remaining osseous structures without evident osteomyelitis. Soft tissue edema over the foot. Increased fluid signal within the interosseous muscles of the forefoot can be seen in association with early neuropathic changes. IMPRESSION: 1. Osteomyelitis of the entire fifth metatarsal of the left foot, with complete versus near complete destruction of the head of the fifth metatarsal. 2. Soft tissue ulceration at the lateral aspect of the expected location of the head of the fifth metatarsal, with fistulous connection between the skin and the periosteum of the fifth metatarsal. 3. Fluid collection over the diaphysis of the fifth metatarsal suggesting abscess. 4. Remaining osseous structures are without evident osteomyelitis. RPTAT: [facility] Physician Jil Date Time Electronically viewed and signed by Physician Jil on 01/25/2017 01:30 RS/ CC: BOBBY VAZ BOLATITO M. Jan 26, 2017 15:24
[2017-01-26] MEDS: ACCU-CHEK XX SCH ×3 (17:08→21:00)
--- NOTE | 2017-01-26 18:11 | PN ---
DATE: 01/26/2017 SUBJECTIVE: No acute changes. The patient is alert, lying comfortably in bed. Denies pain, discom fort, no fevers. MICROBIOLOGY: Wound culture grew Staphylococcus aureus and alpha hemolytic strep species. ANTIMICROBIALS: 1. Vancomycin. 2. Zosyn. PHYSICAL EXAMINATION: GENERAL: This is a well-developed elderly man who is alert, in no distress. HEENT: Head atraumatic, normocephalic. Sclerae anicteric. Buccal mucosa pink. NECK: Supple, trachea midline. CHEST: Rise symmetrical. Breath sounds clear. HEART: S1, S2. ABDOMEN: Soft, bowel tones present. EXTREMITIES: Without cyanosis. Left foot dressing intact. ASSESSMENT: 1. Left foot cellulitis, osteomyelitis, abscess. 2. Diabetes. 3. Hypertension. 4. Peripheral vascular disease. PLAN: The patient remains clinically stable, waiting for podiatry evaluation. We are going to disc ontinue vancomycin, keep him on Zosyn for now. Continue local wound care per podiatry recommendatio ns. May need I and D. Dictated By: REBEKAH SEGAL FLY WORKER for RICHMOND CALDWELL/LIDA Conf#: [id number] DID#: [id number]
[2017-01-26 20:29] VITALS: BP 162/72; RESP 18
[2017-01-26 23:01] VITALS: BP 136/63
[2017-01-26] MEDS: CEFTRIAXONE 1 GM/50 ML (PMX) 50 ML IVPB SCH (23:03)
[2017-01-27] MEDS: SOD CHLORIDE 0.45% 1,000 ML IV SCH ×2 (01:39→14:59)
[2017-01-27] MEDS: ATORVASTATIN 20 MG TAB PO SCH (02:12)
[2017-01-27] MEDS: DOCUSATE SODIUM 100 MG CAP PO SCH ×2 (02:12→08:10)
[2017-01-27] MEDS: FOLIC ACID 1 MG TAB PO SCH (02:13)
[2017-01-27] MEDS: GABAPENTIN 300 MG CAP PO SCH (02:13)
[2017-01-27] MEDS: ASPIRIN (EC) 81 MG TAB PO SCH (02:15)
[2017-01-27] MEDS: HEPARIN 5,000 UNIT/0.5 ML SYG SC SCH ×2 (02:17→08:17)
[2017-01-27] MEDS: MELATONIN 10 MG PO SCH (02:18)
[2017-01-27] MEDS: DIPHENHYDRAMINE 50 MG CAP PO PRN (02:21)
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
[2017-01-27 05:19] LABS: ADD SCAN DIFF NO
[2017-01-27 05:23] LABS: BASOPHIL # 0.1 10^3/ul (0.0-0.1); BASOPHILS % 0.6 % (0.0-2.0); EOSINOPHILS # 0.3 10^3/ul (0.0-0.5); EOSINOPHILS % 3.6 % (0.0-7.0); HEMATOCRIT 27.5 % (42.0-52.0); HEMOGLOBIN 8.8 g/dl (14.0-18.0); LYMPHOCYTES # 1.2 10^3/ul (0.8-2.9); LYMPHOCYTES % 14.5 % (15.0-51.0); MEAN CORPUSCULAR HEMOGLOBIN 28.2 pg (29.0-33.0); MEAN CORPUSCULAR VOLUME 88.1 fl (82.0-101.0); MEAN PLATELET VOLUME 8.9 fl (7.4-10.4); MONOCYTE # 0.7 10^3/ul (0.3-0.9); MONOCYTES % 8.5 % (0.0-11.0); NEUTROPHIL # 6.1 10^3/ul (1.6-7.5); NEUTROPHILS % 72.2 % (39.0-77.0); PLATELET COUNT 551 10^3/UL (140-415); RED BLOOD COUNT 3.12 10^6/ul (4.70-6.10); RED CELL DISTRIBUTION WIDTH 13.9 % (11.5-14.5); WHITE BLOOD COUNT 8.4 10^3/ul (4.8-10.8)
[2017-01-27 05:45] LABS: POTASSIUM 4.6 mmol/L (3.5-5.1)
[2017-01-27 05:48] LABS: CREATININE 1.67 mg/dl (0.61-1.24)
[2017-01-27 05:49] LABS: CALCIUM 8.8 mg/dl (8.4-10.2)
[2017-01-27] MEDS: PIPER-TAZO 3.375 GM IV (PMX) 100 ML IVPB SCH ×3 (06:07→18:19)
[2017-01-27] MEDS: PANTOPRAZOLE (EC) 40 MG TAB PO SCH (06:08)
[2017-01-27] MEDS: ACCU-CHEK XX SCH ×7 (07:30→21:00)
[2017-01-27 07:53] VITALS: BP 128/58; RESP 16
[2017-01-27] MEDS: RIFAMPIN 300 MG CAP PO SCH (09:15)
[2017-01-27] MEDS: HUMALOG PUMP SC SCH ×3 (11:45→21:00)
--- NOTE | 2017-01-27 13:45 | PN ---
Date/Time of Note Date/Time of Note DATE: 01/27/17 TIME: 13:28 Assessment/Plan VTE Prophylaxis VTE Prophylaxis Intervention: heparin Lines/Catheters IV Catheter Type (from Nrs): Peripheral IV Urinary Cath still in place: No Assessment/Plan Assessment/Plan 1. Left foot cellulitis, osteomyelitis, abscess, on rocephin and rifampin, awaiting for podiatry consult(Dr. Tillman) 2. Diabetes mellitus, with renal and vascular manifestation, stable 3. Hypertension. controlled 4. Peripheral vascular disease. 5. CKD, stage 3, follow up with BMP 6. DVT prophylaxis: heparin Subjective 24 Hr Interval Summary Free Text/Dictation afebrile Exam/Review of Systems Vital Signs Vitals Vital Signs Date Time Temp Pulse Resp B/P Pulse Ox O2 Delivery O2 Flow Rate FiO2 01/27/17 07:53 98.4 65 16 128/58 98 01/24/17 22:30 Room Air Intake and Output 01/26/17 01/26/17 01/27/17 14:59 22:59 06:59 Intake Total 100 ml 1480 ml 1740 ml Balance 100 ml 1480 ml 1740 ml Exam Constitutional: alert, oriented, well developed Psych: nl mood/affect, no complaints Head: atraumatic, normocephalic Eyes: EOMI, PERRL, nl conjunctiva ENMT: nl external ears & nose, nl lips & teeth, nl nasal mucosa & septum Neck: non-tender, supple Respiratory: clear to auscultation, normal air movement, No congested cough, No crackles/rales, No diminished breath sounds, No intercostal retraction, No labored breathing, No other, No respirations, No tactile fremitus, No wheezing Cardiovascular: nl pulses, regular rate and rhythm, No S3, No S4, No bruits, No diastolic murmur, No edema, No gallop, No irregular rhythm, No jugular venous distention (JVD), No murmurs/extra sounds, No other, No rub, No systolic murmur Gastrointestinal: nl liver, spleen, non-tender, soft, No ascites, No bowel sounds, No distended, No firm, No hepatomegaly, No mass , No other, No rebound or guarding, No splenomegaly, No surgical scars, No tender Musculoskeletal: nl extremities to inspection, No other Extremities: normal pulses, other ( On the left foot there is a well circumscribed 2-cm diameter area with purulent drainage and ulcer on the lateral aspect of the left proximal 5th metatarsal), No calf tenderness, No clubbing, No cyanosis, No edema, No palpable cord, No pitting pedal edema, No tenderness Neurological: [employer]PARATION C[facility] COORDINATOR II-XII intact, nl mental status, nl speech, nl strength Skin: nl turgor Results Result Diagram: 01/27/17 0455 01/27/17 0455 Results 24 hrs Laboratory Tests Test 01/26/17 16:20 01/26/17 19:49 01/26/17 21:37 01/27/17 04:55 Bedside Glucose 94 179 143 Anion Gap 15 Basophils # 0.1 Basophils % 0.6 Blood Urea Nitrogen 15 Calcium Level 8.8 Carbon Dioxide Level 27 Chloride Level 100 Creatinine 1.67 H Eosinophils # 0.3 Eosinophils % 3.6 Glucose Level 168 Hematocrit 27.5 L Hemoglobin 8.8 L Lymphocytes # 1.2 Lymphocytes % 14.5 L Mean Corpuscular Hemoglobin 28.2 L Mean Corpuscular Hemoglobin Concent 32.0 Mean Corpuscular Volume 88.1 Mean Platelet Volume 8.9 Monocytes # 0.7 Monocytes % 8.5 Neutrophils # 6.1 Neutrophils % 72.2 Nucleated Red Blood Cells # 0.0 Nucleated Red Blood Cells % 0.0 Platelet Count 551 H Potassium Level 4.6 Red Blood Count 3.12 L Red Cell Distribution Width 13.9 Sodium Level 137 White Blood Count 8.4 Test 01/27/17 08:13 01/27/17 11:58 Bedside Glucose 148 124 Medications Medications Current Medications Ondansetron HCl (Zofran Inj) 4 mg Q6H PRN IV NAUSEA AND/OR VOMITING; Start at 20:30 Acetaminophen (Tylenol Tab) 650 mg Q6H PRN PO PAIN LEVEL 1-3 OR FEVER; Start at 20:30 Acetaminophen/ Hydrocodone Bitart ([place] (5/325)) 1 tab Q6H PRN PO MODERATE PAIN LEVEL 4-6; Start 01/24/17 at 20:30 Morphine Sulfate (morphine) 2 mg Q4H PRN IV SEVERE PAIN LEVEL 7-10; Start 01/24 at 20:30 Magnesium Hydroxide (Milk Of Mag) 30 ml DAILY PRN PO CONSTIPATION; Start at 20:30 Sodium Biphosphate/ Sodium Phosphate (Fleet Enema) 133 ml DAILY PRN [place] CONSTIPATION; Start 01/24/17 at 20:30 Pantoprazole (Protonix Tab) 40 mg DAILY@06 PO Last administered on 01/27/17 06 :08; Admin Dose 40 MG; Start 01/25/17 at 06:00 Heparin Sodium (Porcine) 5000 unit 5,000 unit Q12 SC Last administered on 02:17; Admin Dose 5,000 UNIT; Start 01/24/17 at 21:00 Sodium Chloride (1/2 NS) 1,000 ml @ 75 mls/hr [id number] IV Last administered on 01/26/17 17:29; Admin Dose 75 MLS/HR; Start 01/24/17 at 20:19 Lorazepam 0.5 mg 0.5 mg Q6H PRN IV ANXIETY; Start 01/24/17 at 20:30 Piperacillin Sod/ Tazobactam Sod (Zosyn 3.375gm/ 100 ml (Pmx)) 100 ml @ 200 mls /hr Q6 IVPB Last administered on 01/27/17 13:08; Admin Dose 200 MLS/HR; Start 01/25/17 at 00:00 Hydralazine HCl (Apresoline) 10 mg Q6H PRN IV ELEVATED BLOOD PRESSURE; Start at 20:30 Clonidine (Catapres) 0.1 mg Q6H PRN PO ELEVATED BLOOD PRESSURE; Start 01/24/17 at 20:30 Nitroglycerin (Nitroglycerin (Sl Tab) 0.4 Mg) 1 tab Q5M PRN SL ANGINA; Start at 20:30 Atorvastatin Calcium (Lipitor) 20 mg HS PO Last administered on 01/27/17 02:12 ; Admin Dose 20 MG; Start 01/24/17 at 21:00 Diphenhydramine HCl (Benadryl) 50 mg QHS PRN PO sleep Last administered on 01/27 02:21; Admin Dose 50 MG; Start 01/24/17 at 20:30 Ergocalciferol (Drisdol) 50,000 unit Fr@09 PO ; Start 01/31/17 at 09:00 Miscellaneous Information 1 ea NOTE XX ; Start 01/24/17 at 21:00 Glucose (Glutose) 15 gm Q15M PRN PO DECREASED GLUCOSE; Start 01/24/17 at 21:00 Glucose (Glutose) 22.5 gm Q15M PRN PO DECREASED GLUCOSE; Start 01/24/17 at 21: 00 Dextrose (D50w Syringe) 25 ml Q15M PRN IV DECREASED GLUCOSE; Start 01/24/17 at 21:00 Dextrose (D50w Syringe) 50 ml Q15M PRN IV DECREASED GLUCOSE; Start 01/24/17 at 21:00 Glucagon (Glucagen) 1 mg Q15M PRN IM DECREASED GLUCOSE; Start 01/24/17 at 21:00 Glucose (Glutose) 15 gm Q15M PRN BUCCAL DECREASED GLUCOSE; Start 01/24/17 at 21 :00 Gabapentin (Neurontin) 1,800 mg HS PO Last administered on 01/27/17 02:13; Admin Dose 1,800 MG; Start 01/25/17 at 01:31 Patient Own Medication 2 ea HS PO Last administered on 01/27/17 02:18; Admin Dose 2 EA; Start 01/25/17 at 21:00 Influenza Virus Vaccine (Fluzone) 0.5 ml ONCE ONCE IM* ; Start 01/28/17 at 09:00 ; Stop 01/28/17 at 09:01 Aspirin (Halfprin) 81 mg HS PO Last administered on 01/27/17 02:15; Admin Dose 81 MG; Start 01/25/17 at 21:00 Folic Acid (Folic Acid) 1 mg HS PO Last administered on 01/27/17 02:13; Admin Dose 1 MG; Start 01/25/17 at 21:00 Collagenase (Santyl) 1 applic DAILY TOP Last administered on 01/26/17 12:04; Admin Dose 1 APPLIC; Start 01/25/17 at 17:00 Docusate Sodium 100 mg 100 mg Q12H PO Last administered on 01/27/17 02:12; Admin Dose 100 MG; Start 01/26/17 at 20:30 Ceftriaxone Sodium (Rocephin) 50 ml @ 100 mls/hr Q24H IVPB Last administered on 01/26/17 23:03; Admin Dose 100 MLS/HR; Start 01/26/17 at 23:00; Stop at 12:00 Rifampin (Rifampin) 600 mg DAILY PO Last administered on 01/27/17t 09:15; Admin Dose 600 MG; Start 01/27/17 at 09:00; Stop 03/12/17 at 12:00 ASHTYN TORREZ MD Jan 27, 2017 13:39
--- NOTE | 2017-01-27 13:56 | CONS ---
Date/Time of Note Date/Time of Note DATE: 01/27/17 TIME: 13:55 Assessment/Plan Assessment/Plan Chief Complaint/Hosp Course SUBJECTIVE: No acute changes. The patient is alert, lying comfortably in bed. Denies pain, discomfort, no fevers. MICROBIOLOGY: Wound culture grew Staphylococcus aureus and alpha hemolytic strep species. ANTIMICROBIALS: Rocephin, Rifampin PHYSICAL EXAMINATION: GENERAL: This is a well-developed elderly man who is alert, in no distress. HEENT: Head atraumatic, normocephalic. Sclerae anicteric. Buccal mucosa pink. NECK: Supple, trachea midline. CHEST: Rise symmetrical. Breath sounds clear. HEART: S1, S2. ABDOMEN: Soft, bowel tones present. EXTREMITIES: Without cyanosis. Left foot dressing intact. ASSESSMENT: 1. Left foot cellulitis, osteomyelitis, abscess. 2. Diabetes. 3. Hypertension. 4. Peripheral vascular disease. PLAN: The patient remains stable, continue abx, local wound care per podiatry recommendations. Pt will need PICC for care home IV abx. DW staff Problems: Consultation Date/Type/Reason Admit Date/Time Jan 24, 2017 at 19:34 Initial Consult Date Type of Consultation: ID Referring Provider: TOY PRESTON Exam/Review of Systems Vital Signs Vitals Vital Signs Date Time Temp Pulse Resp B/P Pulse Ox O2 Delivery O2 Flow Rate FiO2 01/27/17 07:53 98.4 65 16 128/58 98 01/24/17 22:30 Room Air Intake and Output 01/26/17 01/26/17 01/27/17 15:00 23:00 07:00 Intake Total 100 ml 1480 ml 1740 ml Balance 100 ml 1480 ml 1740 ml Results Result Diagram: 01/27/17 0455 01/27/17 0455 Results 24 hrs Laboratory Tests Test 01/26/17 16:20 01/26/17 19:49 01/26/17 21:37 01/27/17 04:55 Bedside Glucose 94 179 143 Anion Gap 15 Basophils # 0.1 Basophils % 0.6 Blood Urea Nitrogen 15 Calcium Level 8.8 Carbon Dioxide Level 27 Chloride Level 100 Creatinine 1.67 H Eosinophils # 0.3 Eosinophils % 3.6 Glucose Level 168 Hematocrit 27.5 L Hemoglobin 8.8 L Lymphocytes # 1.2 Lymphocytes % 14.5 L Mean Corpuscular Hemoglobin 28.2 L Mean Corpuscular Hemoglobin Concent 32.0 Mean Corpuscular Volume 88.1 Mean Platelet Volume 8.9 Monocytes # 0.7 Monocytes % 8.5 Neutrophils # 6.1 Neutrophils % 72.2 Nucleated Red Blood Cells # 0.0 Nucleated Red Blood Cells % 0.0 Platelet Count 551 H Potassium Level 4.6 Red Blood Count 3.12 L Red Cell Distribution Width 13.9 Sodium Level 137 White Blood Count 8.4 Test 01/27/17 08:13 01/27/17 11:58 Bedside Glucose 148 124 Medications Medications Current Medications Ondansetron HCl (Zofran Inj) 4 mg Q6H PRN IV NAUSEA AND/OR VOMITING; Start at 20:30 Acetaminophen (Tylenol Tab) 650 mg Q6H PRN PO PAIN LEVEL 1-3 OR FEVER; Start at 20:30 Acetaminophen/ Hydrocodone Bitart ([place] (5/325)) 1 tab Q6H PRN PO MODERATE PAIN LEVEL 4-6; Start 01/24/17 at 20:30 Morphine Sulfate (morphine) 2 mg Q4H PRN IV SEVERE PAIN LEVEL 7-10; Start 01/24 at 20:30 Magnesium Hydroxide (Milk Of Mag) 30 ml DAILY PRN PO CONSTIPATION; Start at 20:30 Sodium Biphosphate/ Sodium Phosphate (Fleet Enema) 133 ml DAILY PRN [place] CONSTIPATION; Start 01/24/17 at 20:30 Pantoprazole (Protonix Tab) 40 mg DAILY@06 PO Last administered on 01/27/17 06 :08; Admin Dose 40 MG; Start 01/25/17 at 06:00 Heparin Sodium (Porcine) 5000 unit 5,000 unit Q12 SC Last administered on 02:17; Admin Dose 5,000 UNIT; Start 01/24/17 at 21:00 Sodium Chloride (1/2 NS) 1,000 ml @ 75 mls/hr [id number] IV Last administered on 01/26/17 17:29; Admin Dose 75 MLS/HR; Start 01/24/17 at 20:19 Lorazepam 0.5 mg 0.5 mg Q6H PRN IV ANXIETY; Start 01/24/17 at 20:30 Piperacillin Sod/ Tazobactam Sod (Zosyn 3.375gm/ 100 ml (Pmx)) 100 ml @ 200 mls /hr Q6 IVPB Last administered on 01/27/17 13:08; Admin Dose 200 MLS/HR; Start 01/25/17 at 00:00 Hydralazine HCl (Apresoline) 10 mg Q6H PRN IV ELEVATED BLOOD PRESSURE; Start at 20:30 Clonidine (Catapres) 0.1 mg Q6H PRN PO ELEVATED BLOOD PRESSURE; Start 01/24/17 at 20:30 Nitroglycerin (Nitroglycerin (Sl Tab) 0.4 Mg) 1 tab Q5M PRN SL ANGINA; Start at 20:30 Atorvastatin Calcium (Lipitor) 20 mg HS PO Last administered on 01/27/17 02:12 ; Admin Dose 20 MG; Start 01/24/17 at 21:00 Diphenhydramine HCl (Benadryl) 50 mg QHS PRN PO sleep Last administered on 01/27 02:21; Admin Dose 50 MG; Start 01/24/17 at 20:30 Ergocalciferol (Drisdol) 50,000 unit Fr@09 PO ; Start 01/31/17 at 09:00 Miscellaneous Information 1 ea NOTE XX ; Start 01/24/17 at 21:00 Glucose (Glutose) 15 gm Q15M PRN PO DECREASED GLUCOSE; Start 01/24/17 at 21:00 Glucose (Glutose) 22.5 gm Q15M PRN PO DECREASED GLUCOSE; Start 01/24/17 at 21: 00 Dextrose (D50w Syringe) 25 ml Q15M PRN IV DECREASED GLUCOSE; Start 01/24/17 at 21:00 Dextrose (D50w Syringe) 50 ml Q15M PRN IV DECREASED GLUCOSE; Start 01/24/17 at 21:00 Glucagon (Glucagen) 1 mg Q15M PRN IM DECREASED GLUCOSE; Start 01/24/17 at 21:00 Glucose (Glutose) 15 gm Q15M PRN BUCCAL DECREASED GLUCOSE; Start 01/24/17 at 21 :00 Gabapentin (Neurontin) 1,800 mg HS PO Last administered on 01/27/17 02:13; Admin Dose 1,800 MG; Start 01/25/17 at 01:31 Patient Own Medication 2 ea HS PO Last administered on 01/27/17 02:18; Admin Dose 2 EA; Start 01/25/17 at 21:00 Influenza Virus Vaccine (Fluzone) 0.5 ml ONCE ONCE IM* ; Start 01/28/17 at 09:00 ; Stop 01/28/17 at 09:01 Aspirin (Halfprin) 81 mg HS PO Last administered on 01/27/17 02:15; Admin Dose 81 MG; Start 01/25/17 at 21:00 Folic Acid (Folic Acid) 1 mg HS PO Last administered on 01/27/17 02:13; Admin Dose 1 MG; Start 01/25/17 at 21:00 Collagenase (Santyl) 1 applic DAILY TOP Last administered on 01/26/17 12:04; Admin Dose 1 APPLIC; Start 01/25/17 at 17:00 Docusate Sodium 100 mg 100 mg Q12H PO Last administered on 01/27/17 02:12; Admin Dose 100 MG; Start 01/26/17 at 20:30 Ceftriaxone Sodium (Rocephin) 50 ml @ 100 mls/hr Q24H IVPB Last administered on 01/26/17 23:03; Admin Dose 100 MLS/HR; Start 01/26/17 at 23:00; Stop at 12:00 Rifampin (Rifampin) 600 mg DAILY PO Last administered on 01/27/17 09:15; Admin Dose 600 MG; Start 01/27/17 at 09:00; Stop 03/12/17 at 12:00 REBEKAH SEGAL NP Jan 27, 2017 13:56
--- NOTE | 2017-01-27 14:10 | CONS ---
Date/Time of Note Date/Time of Note DATE: 01/27/17 TIME: 14:04 Assessment/Plan Assessment/Plan Problems: (1) Type 1 diabetes mellitus with diabetic chronic kidney disease Status: Chronic Comment: At this time this is relatively stable. His sugars are coming under better control using the pump in a controlled setting and while treating the infection with IV antibiotics. Given this is a second go round with this specific infection the patient is leaning toward requesting a ray amputation. This will be deferred off to Dr. Tillman Qualifiers: Qualified Code: E10.22 - Type 1 diabetes mellitus with stage 3 chronic kidney disease (2) Osteomyelitis Status: Acute Comment: On antibiotics we have ID recommendations for this. The question will be whether or not there will be a surgical intervention Qualifiers: Qualified Code: M86.172 - Acute osteomyelitis of left foot (3) Chronic kidney disease, stage II (mild) Status: Chronic Comment: This is stable (4) Essential (primary) hypertension Status: Chronic Comment: Adequately controlled on KAREN inhibitors consider increasing KAREN inhibitor dose (5) Hyperlipidemia Status: Chronic Comment: On treatment Qualifiers: Qualified Code: E78.00 - Pure hypercholesterolemia Consultation Date/Type/Reason Admit Date/Time Jan 24, 2017 at 19:34 Date of Consultation: Jan 27, 2017 Type of Consultation: Endocrinology Reason for Consultation Diabetes mellitus type 1 on a pump; chronic kidney disease; left foot fifth metatarsal osteomyelitis 9 months Hx of Present Illness 7-year-old male with a long-term history of diabetes mellitus type 1. He developed diabetes mellitus at the age of 7 and in the last 2 years has been on insulin pump. He was admitted once previously to this facility in October 2015 with influenza induced diabetic ketoacidosis. He has been on a pump for some time in fact the pump is currently using is 2 years old. His main head of sales and marketing is Dr. Barton in [place]. They had discussed the possibility of using a continuous glucose monitor and a closed loop system for him however there is some insurance constraints regarding this. The patient reports that in the last 9 months since he has had the foot injury (please see HPI) his sugars have been much more variable and not as well-controlled. Please note he also reports some dental issues Constitutional: no complaints (Since in the hospital denies fevers chills or sweats) Eyes: no complaints (Denies any known active eye complications) ENT: no complaints Respiratory: no complaints Cardiovascular: no complaints Gastrointestinal: no complaints Genitourinary: no complaints Psychological: nl mood/affect, no complaints Past Medical History Diabetes mellitus type 1; chronic kidney disease stage II left foot fifth metatarsal osteomyelitis status post prior 6 week course of IV antibiotic therapy failed hypertension; hyperlipidemia; nonproliferative diabetic retinopathy Social History Alcohol Use: none Smoking Status: Never smoker Drug Use: none Exam/Review of Systems Vital Signs Vitals Vital Signs Date Time Temp Pulse Resp B/P Pulse Ox O2 Delivery O2 Flow Rate FiO2 01/27/17 07:53 98.4 65 16 128/58 98 01/24/17 22:30 Room Air Intake and Output 01/26/17 01/26/17 01/27/17 15:00 23:00 07:00 Intake Total 100 ml 1480 ml 1740 ml Balance 100 ml 1480 ml 1740 ml Exam Constitutional: alert, oriented Respiratory: clear to auscultation, normal air movement Cardiovascular: nl pulses, regular rate and rhythm Gastrointestinal: nl liver, spleen, non-tender, soft Results Result Diagram: 01/27/17 0455 01/27/17 0455 Results 24 hrs Laboratory Tests Test 01/26/17 16:20 01/26/17 19:49 01/26/17 21:37 01/27/17 04:55 Bedside Glucose 94 179 143 Anion Gap 15 Basophils # 0.1 Basophils % 0.6 Blood Urea Nitrogen 15 Calcium Level 8.8 Carbon Dioxide Level 27 Chloride Level 100 Creatinine 1.67 H Eosinophils # 0.3 Eosinophils % 3.6 Glucose Level 168 Hematocrit 27.5 L Hemoglobin 8.8 L Lymphocytes # 1.2 Lymphocytes % 14.5 L Mean Corpuscular Hemoglobin 28.2 L Mean Corpuscular Hemoglobin Concent 32.0 Mean Corpuscular Volume 88.1 Mean Platelet Volume 8.9 Monocytes # 0.7 Monocytes % 8.5 Neutrophils # 6.1 Neutrophils % 72.2 Nucleated Red Blood Cells # 0.0 Nucleated Red Blood Cells % 0.0 Platelet Count 551 H Potassium Level 4.6 Red Blood Count 3.12 L Red Cell Distribution Width 13.9 Sodium Level 137 White Blood Count 8.4 Test 01/27/17 08:13 01/27/17 11:58 Bedside Glucose 148 124 Medications Medications Current Medications Ondansetron HCl (Zofran Inj) 4 mg Q6H PRN IV NAUSEA AND/OR VOMITING; Start at 20:30 Acetaminophen (Tylenol Tab) 650 mg Q6H PRN PO PAIN LEVEL 1-3 OR FEVER; Start at 20:30 Acetaminophen/ Hydrocodone Bitart ([place] (5/325)) 1 tab Q6H PRN PO MODERATE PAIN LEVEL 4-6; Start 01/24/17 at 20:30 Morphine Sulfate (morphine) 2 mg Q4H PRN IV SEVERE PAIN LEVEL 7-10; Start 01/24 at 20:30 Magnesium Hydroxide (Milk Of Mag) 30 ml DAILY PRN PO CONSTIPATION; Start at 20:30 Sodium Biphosphate/ Sodium Phosphate (Fleet Enema) 133 ml DAILY PRN [place] CONSTIPATION; Start 01/24/17 at 20:30 Pantoprazole (Protonix Tab) 40 mg DAILY@06 PO Last administered on 01/27/17 06 :08; Admin Dose 40 MG; Start 01/25/17 at 06:00 Heparin Sodium (Porcine) 5000 unit 5,000 unit Q12 SC Last administered on 02:17; Admin Dose 5,000 UNIT; Start 01/24/17 at 21:00 Sodium Chloride (1/2 NS) 1,000 ml @ 75 mls/hr [id number] IV Last administered on 01/26/17 17:29; Admin Dose 75 MLS/HR; Start 01/24/17 at 20:19 Lorazepam 0.5 mg 0.5 mg Q6H PRN IV ANXIETY; Start 01/24/17 at 20:30 Piperacillin Sod/ Tazobactam Sod (Zosyn 3.375gm/ 100 ml (Pmx)) 100 ml @ 200 mls /hr Q6 IVPB Last administered on 01/27/17 13:08; Admin Dose 200 MLS/HR; Start 01/25/17 at 00:00 Hydralazine HCl (Apresoline) 10 mg Q6H PRN IV ELEVATED BLOOD PRESSURE; Start at 20:30 Clonidine (Catapres) 0.1 mg Q6H PRN PO ELEVATED BLOOD PRESSURE; Start 01/24/17 at 20:30 Nitroglycerin (Nitroglycerin (Sl Tab) 0.4 Mg) 1 tab Q5M PRN SL ANGINA; Start at 20:30 Atorvastatin Calcium (Lipitor) 20 mg HS PO Last administered on 01/27/17 02:12 ; Admin Dose 20 MG; Start 01/24/17 at 21:00 Diphenhydramine HCl (Benadryl) 50 mg QHS PRN PO sleep Last administered on 01/27 02:21; Admin Dose 50 MG; Start 01/24/17 at 20:30 Ergocalciferol (Drisdol) 50,000 unit Fr@09 PO ; Start 01/31/17 at 09:00 Miscellaneous Information 1 ea NOTE XX ; Start 01/24/17 at 21:00 Glucose (Glutose) 15 gm Q15M PRN PO DECREASED GLUCOSE; Start 01/24/17 at 21:00 Glucose (Glutose) 22.5 gm Q15M PRN PO DECREASED GLUCOSE; Start 01/24/17 at 21: 00 Dextrose (D50w Syringe) 25 ml Q15M PRN IV DECREASED GLUCOSE; Start 01/24/17 at 21:00 Dextrose (D50w Syringe) 50 ml Q15M PRN IV DECREASED GLUCOSE; Start 01/24/17 at 21:00 Glucagon (Glucagen) 1 mg Q15M PRN IM DECREASED GLUCOSE; Start 01/24/17 at 21:00 Glucose (Glutose) 15 gm Q15M PRN BUCCAL DECREASED GLUCOSE; Start 01/24/17 at 21 :00 Gabapentin (Neurontin) 1,800 mg HS PO Last administered on 01/27/17 02:13; Admin Dose 1,800 MG; Start 01/25/17 at 01:31 Patient Own Medication 2 ea HS PO Last administered on 01/27/17 02:18; Admin Dose 2 EA; Start 01/25/17 at 21:00 Influenza Virus Vaccine (Fluzone) 0.5 ml ONCE ONCE IM* ; Start 01/28/17 at 09:00 ; Stop 01/28/17 at 09:01 Aspirin (Halfprin) 81 mg HS PO Last administered on 01/27/17 02:15; Admin Dose 81 MG; Start 01/25/17 at 21:00 Folic Acid (Folic Acid) 1 mg HS PO Last administered on 01/27/17 02:13; Admin Dose 1 MG; Start 01/25/17 at 21:00 Collagenase (Santyl) 1 applic DAILY TOP Last administered on 01/26/17 12:04; Admin Dose 1 APPLIC; Start 01/25/17 at 17:00 Docusate Sodium 100 mg 100 mg Q12H PO Last administered on 01/27/17 02:12; Admin Dose 100 MG; Start 01/26/17 at 20:30 Ceftriaxone Sodium (Rocephin) 50 ml @ 100 mls/hr Q24H IVPB Last administered on 01/26/17 23:03; Admin Dose 100 MLS/HR; Start 01/26/17 at 23:00; Stop at 12:00 Rifampin (Rifampin) 600 mg DAILY PO Last administered on 01/27/17 09:15; Admin Dose 600 MG; Start 01/27/17 at 09:00; Stop 03/12/17 at 12:00 ASHANTI BRYANT MD Jan 27, 2017 14:09
[2017-01-27 21:40] VITALS: BP 139/65; RESP 18
[2017-01-27] MEDS: CEFTRIAXONE 1 GM/50 ML (PMX) 50 ML IVPB SCH (23:08)
--- NOTE | 2017-01-27 23:31 | CONS ---
Date/Time of Note Date/Time of Note DATE: 01/27/17 TIME: 23:29 Assessment/Plan Assessment/Plan Problems: (1) Cellulitis and abscess of toe of left foot (2) Osteomyelitis of left foot (3) Non-pressure chronic ulcer of other part of left foot with necrosis of bone (4) T1DM (type 1 diabetes mellitus) Status: Chronic Consultation Date/Type/Reason Admit Date/Time Jan 24, 2017 at 19:34 Constitutional: no complaints (Since in the hospital denies fevers chills or sweats) Eyes: no complaints (Denies any known active eye complications) ENT: no complaints Respiratory: no complaints Cardiovascular: no complaints Gastrointestinal: no complaints Genitourinary: no complaints Psychological: nl mood/affect, no complaints Social History Alcohol Use: none Smoking Status: Never smoker Drug Use: none Exam/Review of Systems Vital Signs Vitals Vital Signs Date Time Temp Pulse Resp B/P Pulse Ox O2 Delivery O2 Flow Rate FiO2 01/27/17 21:40 98.6 71 18 139/65 98 01/24/17 22:30 Room Air Intake and Output 01/26/17 01/26/17 01/27/17 15:00 23:00 07:00 Intake Total 100 ml 1480 ml 1740 ml Balance 100 ml 1480 ml 1740 ml Results Result Diagram: 01/27/17 0455 01/27/17 0455 Results 24 hrs Laboratory Tests Test 01/27/17 04:55 01/27/17 08:13 01/27/17 11:58 01/27/17 17:32 Anion Gap 15 Basophils # 0.1 Basophils % 0.6 Blood Urea Nitrogen 15 Calcium Level 8.8 Carbon Dioxide Level 27 Chloride Level 100 Creatinine 1.67 H Eosinophils # 0.3 Eosinophils % 3.6 Glucose Level 168 Hematocrit 27.5 L Hemoglobin 8.8 L Lymphocytes # 1.2 Lymphocytes % 14.5 L Mean Corpuscular Hemoglobin 28.2 L Mean Corpuscular Hemoglobin Concent 32.0 Mean Corpuscular Volume 88.1 Mean Platelet Volume 8.9 Monocytes # 0.7 Monocytes % 8.5 Neutrophils # 6.1 Neutrophils % 72.2 Nucleated Red Blood Cells # 0.0 Nucleated Red Blood Cells % 0.0 Platelet Count 551 H Potassium Level 4.6 Red Blood Count 3.12 L Red Cell Distribution Width 13.9 Sodium Level 137 White Blood Count 8.4 Bedside Glucose 148 124 84 Test 01/27/17 21:27 Bedside Glucose 241 H Medications Medications Current Medications Ondansetron HCl (Zofran Inj) 4 mg Q6H PRN IV NAUSEA AND/OR VOMITING; Start at 20:30 Acetaminophen (Tylenol Tab) 650 mg Q6H PRN PO PAIN LEVEL 1-3 OR FEVER; Start at 20:30 Acetaminophen/ Hydrocodone Bitart ([place] (5/325)) 1 tab Q6H PRN PO MODERATE PAIN LEVEL 4-6; Start 01/24/17 at 20:30 Morphine Sulfate (morphine) 2 mg Q4H PRN IV SEVERE PAIN LEVEL 7-10; Start 01/24 at 20:30 Magnesium Hydroxide (Milk Of Mag) 30 ml DAILY PRN PO CONSTIPATION; Start at 20:30 Sodium Biphosphate/ Sodium Phosphate (Fleet Enema) 133 ml DAILY PRN [place] CONSTIPATION; Start 01/24/17 at 20:30 Pantoprazole (Protonix Tab) 40 mg DAILY@06 PO Last administered on 01/27/17 06 :08; Admin Dose 40 MG; Start 01/25/17 at 06:00 Heparin Sodium (Porcine) 5000 unit 5,000 unit Q12 SC Last administered on 02:17; Admin Dose 5,000 UNIT; Start 01/24/17 at 21:00 Sodium Chloride (1/2 NS) 1,000 ml @ 75 mls/hr [id number] IV Last administered on 01/26/17 17:29; Admin Dose 75 MLS/HR; Start 01/24/17 at 20:19 Lorazepam 0.5 mg 0.5 mg Q6H PRN IV ANXIETY; Start 01/24/17 at 20:30 Piperacillin Sod/ Tazobactam Sod (Zosyn 3.375gm/ 100 ml (Pmx)) 100 ml @ 200 mls /hr Q6 IVPB Last administered on 01/27/17 18:19; Admin Dose 200 MLS/HR; Start 01/25/17 at 00:00 Hydralazine HCl (Apresoline) 10 mg Q6H PRN IV ELEVATED BLOOD PRESSURE; Start at 20:30 Clonidine (Catapres) 0.1 mg Q6H PRN PO ELEVATED BLOOD PRESSURE; Start 01/24/17 at 20:30 Nitroglycerin (Nitroglycerin (Sl Tab) 0.4 Mg) 1 tab Q5M PRN SL ANGINA; Start at 20:30 Atorvastatin Calcium (Lipitor) 20 mg HS PO Last administered on 01/27/17 02:12 ; Admin Dose 20 MG; Start 01/24/17 at 21:00 Diphenhydramine HCl (Benadryl) 50 mg QHS PRN PO sleep Last administered on 01/27 02:21; Admin Dose 50 MG; Start 01/24/17 at 20:30 Ergocalciferol (Drisdol) 50,000 unit Fr@09 PO ; Start 01/31/17 at 09:00 Miscellaneous Information 1 ea NOTE XX ; Start 01/24/17 at 21:00 Glucose (Glutose) 15 gm Q15M PRN PO DECREASED GLUCOSE; Start 01/24/17 at 21:00 Glucose (Glutose) 22.5 gm Q15M PRN PO DECREASED GLUCOSE; Start 01/24/17 at 21: 00 Dextrose (D50w Syringe) 25 ml Q15M PRN IV DECREASED GLUCOSE; Start 01/24/17 at 21:00 Dextrose (D50w Syringe) 50 ml Q15M PRN IV DECREASED GLUCOSE; Start 01/24/17 at 21:00 Glucagon (Glucagen) 1 mg Q15M PRN IM DECREASED GLUCOSE; Start 01/24/17 at 21:00 Glucose (Glutose) 15 gm Q15M PRN BUCCAL DECREASED GLUCOSE; Start 01/24/17 at 21 :00 Gabapentin (Neurontin) 1,800 mg HS PO Last administered on 01/27/17 02:13; Admin Dose 1,800 MG; Start 01/25/17 at 01:31 Patient Own Medication 2 ea HS PO Last administered on 01/27/17 02:18; Admin Dose 2 EA; Start 01/25/17 at 21:00 Influenza Virus Vaccine (Fluzone) 0.5 ml ONCE ONCE IM* ; Start 01/28/17 at 09:00 ; Stop 01/28/17 at 09:01 Aspirin (Halfprin) 81 mg HS PO Last administered on 01/27/17 02:15; Admin Dose 81 MG; Start 01/25/17 at 21:00 Folic Acid (Folic Acid) 1 mg HS PO Last administered on 01/27/17 02:13; Admin Dose 1 MG; Start 01/25/17 at 21:00 Collagenase (Santyl) 1 applic DAILY TOP Last administered on 01/26/17 12:04; Admin Dose 1 APPLIC; Start 01/25/17 at 17:00 Docusate Sodium 100 mg 100 mg Q12H PO Last administered on 01/27/17 02:12; Admin Dose 100 MG; Start 01/26/17 at 20:30 Ceftriaxone Sodium (Rocephin) 50 ml @ 100 mls/hr Q24H IVPB Last administered on 01/27/17 23:08; Admin Dose 100 MLS/HR; Start 01/26/17 at 23:00; Stop at 12:00 Rifampin (Rifampin) 600 mg DAILY PO Last administered on 01/27/17 09:15; Admin Dose 600 MG; Start 01/27/17 at 09:00; Stop 03/12/17 at 12:00 MARIZA CHAPPELL DPM Jan 27, 2017 23:30
[2017-01-28] MEDS: PIPER-TAZO 3.375 GM IV (PMX) 100 ML IVPB SCH ×4 (00:13→17:58)
[2017-01-28] MEDS: DIPHENHYDRAMINE 50 MG CAP PO PRN (01:58)
[2017-01-28] MEDS: DOCUSATE SODIUM 100 MG CAP PO SCH ×3 (01:58→20:30)
[2017-01-28] MEDS: GABAPENTIN 300 MG CAP PO SCH (01:58)
[2017-01-28] MEDS: MELATONIN 10 MG PO SCH (01:58)
[2017-01-28] MEDS: ATORVASTATIN 20 MG TAB PO SCH (01:59)
[2017-01-28] MEDS: FOLIC ACID 1 MG TAB PO SCH (01:59)
[2017-01-28] MEDS: ASPIRIN (EC) 81 MG TAB PO SCH (01:59)
[2017-01-28] MEDS: HEPARIN 5,000 UNIT/0.5 ML SYG SC SCH ×2 (02:00→08:57)
[2017-01-28] MEDS: SOD CHLORIDE 0.45% 1,000 ML IV SCH ×3 (04:19→17:39)
[2017-01-28 05:38] LABS: ADD SCAN DIFF NO
[2017-01-28] MEDS: PANTOPRAZOLE (EC) 40 MG TAB PO SCH ×2 (06:00→06:22)
[2017-01-28 06:08] LABS: POTASSIUM 4.2 mmol/L (3.5-5.1)
[2017-01-28 06:10] LABS: CREATININE 1.68 mg/dl (0.61-1.24)
[2017-01-28 06:11] LABS: CALCIUM 8.9 mg/dl (8.4-10.2)
[2017-01-28 06:24] LABS: BASOPHILS % 0.5 % (0.0-2.0); EOSINOPHILS # 0.4 10^3/ul (0.0-0.5); EOSINOPHILS % 4.4 % (0.0-7.0); HEMATOCRIT 26.9 % (42.0-52.0); HEMOGLOBIN 8.6 g/dl (14.0-18.0); LYMPHOCYTES # 1.2 10^3/ul (0.8-2.9); LYMPHOCYTES % 14.7 % (15.0-51.0); MEAN CORPUSCULAR HEMOGLOBIN 28.1 pg (29.0-33.0); MEAN CORPUSCULAR VOLUME 87.9 fl (82.0-101.0); MEAN PLATELET VOLUME 8.9 fl (7.4-10.4); MONOCYTE # 0.9 10^3/ul (0.3-0.9); MONOCYTES % 10.5 % (0.0-11.0); NEUTROPHIL # 5.7 10^3/ul (1.6-7.5); NEUTROPHILS % 69.4 % (39.0-77.0); PLATELET COUNT 577 10^3/UL (140-415); RED BLOOD COUNT 3.06 10^6/ul (4.70-6.10); RED CELL DISTRIBUTION WIDTH 13.6 % (11.5-14.5); WHITE BLOOD COUNT 8.2 10^3/ul (4.8-10.8)
[2017-01-28] MEDS: HUMALOG PUMP SC SCH ×5 (07:30→21:00)
[2017-01-28] MEDS: ACCU-CHEK XX SCH ×9 (07:30→21:00)
[2017-01-28 08:09] VITALS: BP 141/64; RESP 16
[2017-01-28] MEDS: RIFAMPIN 300 MG CAP PO SCH (08:50)
[2017-01-28] MEDS: COLLAGENASE 30 GM TUBE TOP SCH (08:52)
[2017-01-28] MEDS ORDERED: INFLUENZA VIRUS VACCINE 0.5 ML SYG IM* ONE (09:00)
--- NOTE | 2017-01-28 14:24 | CONS ---
Date/Time of Note Date/Time of Note DATE: 01/28/17 TIME: 14:22 Assessment/Plan Assessment/Plan Chief Complaint/Hosp Course 7-year-old male with a long-term history of diabetes mellitus type 1. He developed diabetes mellitus at the age of 7 and in the last 2 years has been on insulin pump. He was admitted once previously to this facility in October 2015 with influenza induced diabetic ketoacidosis. He has been on a pump for some time in fact the pump is currently using is 2 years old. His main multi purpose machine operator is Dr. Barton in [place]. They had discussed the possibility of using a continuous glucose monitor and a closed loop system for him however there is some insurance constraints regarding this. The patient reports that in the last 9 months since he has had the foot injury (please see HPI) his sugars have been much more variable and not as well-controlled. Please note he also reports some dental issues Problems: (1) Hyperlipidemia Status: Chronic Comment: on statin therapy Qualifiers: Hyperlipidemia type: pure hypercholesterolemia Qualified Code: E78.00 - Pure hypercholesterolemia (2) T1DM (type 1 diabetes mellitus) Status: Chronic Comment: sugar is under control with patient actuated pump. 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 hold heparin in prep Qualifiers: Osteomyelitis location: foot Laterality: left Chronicity: acute Qualified Code: M86.172 - Acute osteomyelitis of left foot (4) Essential (primary) hypertension Status: Chronic Comment: controlled Consultation Date/Type/Reason Admit Date/Time Jan 24, 2017 at 19:34 Initial Consult Date 01/27/17 Type of Consultation: Endocrinology Referring Provider: TOY PRESTON 24 HR Interval Summary Constitutional: no complaints Exam/Review of Systems Vital Signs Vitals Vital Signs Date Time Temp Pulse Resp B/P Pulse Ox O2 Delivery O2 Flow Rate FiO2 01/28/17 08:09 98.1 67 16 141/64 97 01/24/17 22:30 Room Air Intake and Output 01/27/17 01/27/17 01/28/17 15:00 23:00 07:00 Intake Total 100 ml 950 ml 1070 ml Balance 100 ml 950 ml 1070 ml Exam Constitutional: alert, oriented Respiratory: clear to auscultation, normal air movement Results Result Diagram: 01/28/17 0525 01/28/17 0525 Results 24 hrs Laboratory Tests Test 01/27/17 17:32 01/27/17 21:27 01/28/17 01:07 01/28/17 05:25 Bedside Glucose 84 241 H 165 Anion Gap 17 H Basophils # 0.0 Basophils % 0.5 Blood Urea Nitrogen 13 Calcium Level 8.9 Carbon Dioxide Level 25 Chloride Level 101 Creatinine 1.68 H Eosinophils # 0.4 Eosinophils % 4.4 Glucose Level 70 # Hematocrit 26.9 L Hemoglobin 8.6 L Lymphocytes # 1.2 Lymphocytes % 14.7 L Mean Corpuscular Hemoglobin 28.1 L Mean Corpuscular Hemoglobin Concent 32.0 Mean Corpuscular Volume 87.9 Mean Platelet Volume 8.9 Monocytes # 0.9 Monocytes % 10.5 Neutrophils # 5.7 Neutrophils % 69.4 Nucleated Red Blood Cells # 0.0 Nucleated Red Blood Cells % 0.0 Platelet Count 577 H Potassium Level 4.2 Red Blood Count 3.06 L Red Cell Distribution Width 13.6 Sodium Level 139 White Blood Count 8.2 Test 01/28/17 07:41 01/28/17 09:48 01/28/17 12:36 Bedside Glucose 67 L 197 216 Medications Medications Current Medications Ondansetron HCl (Zofran Inj) 4 mg Q6H PRN IV NAUSEA AND/OR VOMITING; Start at 20:30 Acetaminophen (Tylenol Tab) 650 mg Q6H PRN PO PAIN LEVEL 1-3 OR FEVER; Start at 20:30 Acetaminophen/ Hydrocodone Bitart ([place] (5/325)) 1 tab Q6H PRN PO MODERATE PAIN LEVEL 4-6; Start 01/24/17 at 20:30 Morphine Sulfate (morphine) 2 mg Q4H PRN IV SEVERE PAIN LEVEL 7-10; Start 01/24 at 20:30 Magnesium Hydroxide (Milk Of Mag) 30 ml DAILY PRN PO CONSTIPATION; Start at 20:30 Sodium Biphosphate/ Sodium Phosphate (Fleet Enema) 133 ml DAILY PRN [place] CONSTIPATION; Start 01/24/17 at 20:30 Pantoprazole (Protonix Tab) 40 mg DAILY@06 PO Last administered on 01/27/17 06 :08; Admin Dose 40 MG; Start 01/25/17 at 06:00 Heparin Sodium (Porcine) 5000 unit 5,000 unit Q12 SC Last administered on 02:00; Admin Dose 5,000 UNIT; Start 01/24/17 at 21:00 Sodium Chloride (1/2 NS) 1,000 ml @ 75 mls/hr [id number] IV Last administered on 01/28/17 13:01; Admin Dose 75 MLS/HR; Start 01/24/17 at 20:19 Lorazepam 0.5 mg 0.5 mg Q6H PRN IV ANXIETY; Start 01/24/17 at 20:30 Piperacillin Sod/ Tazobactam Sod (Zosyn 3.375gm/ 100 ml (Pmx)) 100 ml @ 200 mls /hr Q6 IVPB Last administered on 01/28/17 12:38; Admin Dose 200 MLS/HR; Start 01/25/17 at 00:00 Hydralazine HCl (Apresoline) 10 mg Q6H PRN IV ELEVATED BLOOD PRESSURE; Start at 20:30 Clonidine (Catapres) 0.1 mg Q6H PRN PO ELEVATED BLOOD PRESSURE; Start 01/24/17 at 20:30 Nitroglycerin (Nitroglycerin (Sl Tab) 0.4 Mg) 1 tab Q5M PRN SL ANGINA; Start at 20:30 Atorvastatin Calcium (Lipitor) 20 mg HS PO Last administered on 01/28/17 01:59 ; Admin Dose 20 MG; Start 01/24/17 at 21:00 Diphenhydramine HCl (Benadryl) 50 mg QHS PRN PO sleep Last administered on 01/28 01:58; Admin Dose 50 MG; Start 01/24/17 at 20:30 Ergocalciferol (Drisdol) 50,000 unit Fr@09 PO ; Start 01/31/17 at 09:00 Miscellaneous Information 1 ea NOTE XX ; Start 01/24/17 at 21:00 Glucose (Glutose) 15 gm Q15M PRN PO DECREASED GLUCOSE; Start 01/24/17 at 21:00 Glucose (Glutose) 22.5 gm Q15M PRN PO DECREASED GLUCOSE; Start 01/24/17 at 21: 00 Dextrose (D50w Syringe) 25 ml Q15M PRN IV DECREASED GLUCOSE; Start 01/24/17 at 21:00 Dextrose (D50w Syringe) 50 ml Q15M PRN IV DECREASED GLUCOSE; Start 01/24/17 at 21:00 Glucagon (Glucagen) 1 mg Q15M PRN IM DECREASED GLUCOSE; Start 01/24/17 at 21:00 Glucose (Glutose) 15 gm Q15M PRN BUCCAL DECREASED GLUCOSE; Start 01/24/17 at 21 :00 Gabapentin (Neurontin) 1,800 mg HS PO Last administered on 01/28/17 01:58; Admin Dose 1,800 MG; Start 01/25/17 at 01:31 Patient Own Medication 2 ea HS PO Last administered on 01/28/17 01:58; Admin Dose 2 EA; Start 01/25/17 at 21:00 Aspirin (Halfprin) 81 mg HS PO Last administered on 01/28/17 01:59; Admin Dose 81 MG; Start 01/25/17 at 21:00 Folic Acid (Folic Acid) 1 mg HS PO Last administered on 01/28/17 01:59; Admin Dose 1 MG; Start 01/25/17 at 21:00 Collagenase (Santyl) 1 applic DAILY TOP Last administered on 01/28/17 08:52; Admin Dose 1 APPLIC; Start 01/25/17 at 17:00 Docusate Sodium 100 mg 100 mg Q12H PO Last administered on 01/28/17 01:58; Admin Dose 100 MG; Start 01/26/17 at 20:30 Ceftriaxone Sodium (Rocephin) 50 ml @ 100 mls/hr Q24H IVPB Last administered on 01/27/17 23:08; Admin Dose 100 MLS/HR; Start 01/26/17 at 23:00; Stop at 12:00 Rifampin (Rifampin) 600 mg DAILY PO Last administered on 01/28/17 08:50; Admin Dose 600 MG; Start 01/27/17 at 09:00; Stop 03/12/17 at 12:00 ASHANTI BRYANT MD Jan 28, 2017 14:24
--- NOTE | 2017-01-28 14:34 | CONS ---
Date/Time of Note Date/Time of Note DATE: 01/28/17 TIME: 14:31 Assessment/Plan Assessment/Plan Chief Complaint/Hosp Course SUBJECTIVE: No acute changes. The patient is alert, feels good, no feverfs MICROBIOLOGY: Wound culture grew Staphylococcus aureus and alpha hemolytic strep species. ANTIMICROBIALS: Rocephin, Rifampin PHYSICAL EXAMINATION: GENERAL: This is a well-developed elderly man who is alert, in no distress. HEENT: Head atraumatic, normocephalic. Sclerae anicteric. Buccal mucosa pink. NECK: Supple, trachea midline. CHEST: Rise symmetrical. Breath sounds clear. HEART: S1, S2. ABDOMEN: Soft, bowel tones present. EXTREMITIES: Without cyanosis. Left foot dressing intact. ASSESSMENT: 1. Left foot cellulitis, osteomyelitis, abscess. 2. Diabetes. 3. Hypertension. 4. Peripheral vascular disease. PLAN: The patient remains stable, continue abx, poss TMA==> may not need superintendent [employer] IV abx if infected bone removed==> will dw Dr Tillman after procedure DW staff Problems: Consultation Date/Type/Reason Admit Date/Time Jan 24, 2017 at 19:34 Type of Consultation: ID Referring Provider: TOY PRESTON Exam/Review of Systems Vital Signs Vitals Vital Signs Date Time Temp Pulse Resp B/P Pulse Ox O2 Delivery O2 Flow Rate FiO2 01/28/17 08:09 98.1 67 16 141/64 97 01/24/17 22:30 Room Air Intake and Output 01/27/17 01/27/17 01/28/17 15:00 23:00 07:00 Intake Total 100 ml 950 ml 1070 ml Balance 100 ml 950 ml 1070 ml Results Result Diagram: 01/28/17 0525 01/28/17 0525 Results 24 hrs Laboratory Tests Test 01/27/17 17:32 01/27/17 21:27 01/28/17 01:07 01/28/17 05:25 Bedside Glucose 84 241 H 165 Anion Gap 17 H Basophils # 0.0 Basophils % 0.5 Blood Urea Nitrogen 13 Calcium Level 8.9 Carbon Dioxide Level 25 Chloride Level 101 Creatinine 1.68 H Eosinophils # 0.4 Eosinophils % 4.4 Glucose Level 70 # Hematocrit 26.9 L Hemoglobin 8.6 L Lymphocytes # 1.2 Lymphocytes % 14.7 L Mean Corpuscular Hemoglobin 28.1 L Mean Corpuscular Hemoglobin Concent 32.0 Mean Corpuscular Volume 87.9 Mean Platelet Volume 8.9 Monocytes # 0.9 Monocytes % 10.5 Neutrophils # 5.7 Neutrophils % 69.4 Nucleated Red Blood Cells # 0.0 Nucleated Red Blood Cells % 0.0 Platelet Count 577 H Potassium Level 4.2 Red Blood Count 3.06 L Red Cell Distribution Width 13.6 Sodium Level 139 White Blood Count 8.2 Test 01/28/17 07:41 01/28/17 09:48 01/28/17 12:36 Bedside Glucose 67 L 197 216 Medications Medications Current Medications Ondansetron HCl (Zofran Inj) 4 mg Q6H PRN IV NAUSEA AND/OR VOMITING; Start at 20:30 Acetaminophen (Tylenol Tab) 650 mg Q6H PRN PO PAIN LEVEL 1-3 OR FEVER; Start at 20:30 Acetaminophen/ Hydrocodone Bitart ([place] (5/325)) 1 tab Q6H PRN PO MODERATE PAIN LEVEL 4-6; Start 01/24/17 at 20:30 Morphine Sulfate (morphine) 2 mg Q4H PRN IV SEVERE PAIN LEVEL 7-10; Start 01/24 at 20:30 Magnesium Hydroxide (Milk Of Mag) 30 ml DAILY PRN PO CONSTIPATION; Start at 20:30 Sodium Biphosphate/ Sodium Phosphate (Fleet Enema) 133 ml DAILY PRN [place] CONSTIPATION; Start 01/24/17 at 20:30 Pantoprazole (Protonix Tab) 40 mg DAILY@06 PO Last administered on 01/27/17 06 :08; Admin Dose 40 MG; Start 01/25/17 at 06:00 Heparin Sodium (Porcine) 5000 unit 5,000 unit Q12 SC Last administered on 02:00; Admin Dose 5,000 UNIT; Start 01/24/17 at 21:00; Status Future Hold Sodium Chloride (1/2 NS) 1,000 ml @ 75 mls/hr [id number] IV Last administered on 01/28/17 13:01; Admin Dose 75 MLS/HR; Start 01/24/17 at 20:19 Lorazepam 0.5 mg 0.5 mg Q6H PRN IV ANXIETY; Start 01/24/17 at 20:30 Piperacillin Sod/ Tazobactam Sod (Zosyn 3.375gm/ 100 ml (Pmx)) 100 ml @ 200 mls /hr Q6 IVPB Last administered on 01/28/17 12:38; Admin Dose 200 MLS/HR; Start 01/25/17 at 00:00 Hydralazine HCl (Apresoline) 10 mg Q6H PRN IV ELEVATED BLOOD PRESSURE; Start at 20:30 Clonidine (Catapres) 0.1 mg Q6H PRN PO ELEVATED BLOOD PRESSURE; Start 01/24/17 at 20:30 Nitroglycerin (Nitroglycerin (Sl Tab) 0.4 Mg) 1 tab Q5M PRN SL ANGINA; Start at 20:30 Atorvastatin Calcium (Lipitor) 20 mg HS PO Last administered on 01/28/17 01:59 ; Admin Dose 20 MG; Start 01/24/17 at 21:00 Diphenhydramine HCl (Benadryl) 50 mg QHS PRN PO sleep Last administered on 01/28 01:58; Admin Dose 50 MG; Start 01/24/17 at 20:30 Ergocalciferol (Drisdol) 50,000 unit Fr@09 PO ; Start 01/31/17 at 09:00 Miscellaneous Information 1 ea NOTE XX ; Start 01/24/17 at 21:00 Glucose (Glutose) 15 gm Q15M PRN PO DECREASED GLUCOSE; Start 01/24/17 at 21:00 Glucose (Glutose) 22.5 gm Q15M PRN PO DECREASED GLUCOSE; Start 01/24/17 at 21: 00 Dextrose (D50w Syringe) 25 ml Q15M PRN IV DECREASED GLUCOSE; Start 01/24/17 at 21:00 Dextrose (D50w Syringe) 50 ml Q15M PRN IV DECREASED GLUCOSE; Start 01/24/17 at 21:00 Glucagon (Glucagen) 1 mg Q15M PRN IM DECREASED GLUCOSE; Start 01/24/17 at 21:00 Glucose (Glutose) 15 gm Q15M PRN BUCCAL DECREASED GLUCOSE; Start 01/24/17 at 21 :00 Gabapentin (Neurontin) 1,800 mg HS PO Last administered on 01/28/17 01:58; Admin Dose 1,800 MG; Start 01/25/17 at 01:31 Patient Own Medication 2 ea HS PO Last administered on 01/28/17 01:58; Admin Dose 2 EA; Start 01/25/17 at 21:00 Aspirin (Halfprin) 81 mg HS PO Last administered on 01/28/17 01:59; Admin Dose 81 MG; Start 01/25/17 at 21:00 Folic Acid (Folic Acid) 1 mg HS PO Last administered on 01/28/17 01:59; Admin Dose 1 MG; Start 01/25/17 at 21:00 Collagenase (Santyl) 1 applic DAILY TOP Last administered on 01/28/17 08:52; Admin Dose 1 APPLIC; Start 01/25/17 at 17:00 Docusate Sodium 100 mg 100 mg Q12H PO Last administered on 01/28/17 01:58; Admin Dose 100 MG; Start 01/26/17 at 20:30 Ceftriaxone Sodium (Rocephin) 50 ml @ 100 mls/hr Q24H IVPB Last administered on 01/27/17 23:08; Admin Dose 100 MLS/HR; Start 01/26/17 at 23:00; Stop at 12:00 Rifampin (Rifampin) 600 mg DAILY PO Last administered on 01/28/17 08:50; Admin Dose 600 MG; Start 01/27/17 at 09:00; Stop 03/12/17 at 12:00 REBEKAH SEGAL NP Jan 28, 2017 14:33
--- NOTE | 2017-01-28 14:40 | PN ---
Date/Time of Note Date/Time of Note DATE: 01/28/17 TIME: 14:35 Assessment/Plan VTE Prophylaxis VTE Prophylaxis Intervention: heparin Lines/Catheters IV Catheter Type (from Nrsg): Peripheral IV Urinary Cath still in place: No Assessment/Plan Assessment/Plan 1. Left foot cellulitis, osteomyelitis, abscess, on rocephin and rifampin, follow up with Dr. Tillman for surgery 2. Diabetes mellitus, with renal and vascular manifestation, stable 3. Hypertension. controlled 4. Peripheral vascular disease. 5. CKD, stage 3, follow up with BMP 6. DVT prophylaxis: heparin Subjective 24 Hr Interval Summary Free Text/Dictation afebrile. pain is controlled Exam/Review of Systems Vital Signs Vitals Vital Signs Date Time Temp Pulse Resp B/P Pulse Ox O2 Delivery O2 Flow Rate FiO2 01/28/17 08:09 98.1 67 16 141/64 97 01/24/17 22:30 Room Air Intake and Output 01/27/17 01/27/17 01/28/17 14:59 22:59 06:59 Intake Total 100 ml 950 ml 1070 ml Balance 100 ml 950 ml 1070 ml Exam Constitutional: alert, oriented, well developed Psych: nl mood/affect, no complaints Head: atraumatic, normocephalic Eyes: EOMI, PERRL, nl conjunctiva, nl lids ENMT: nl external ears & nose, nl lips & teeth, nl nasal mucosa & septum Neck: non-tender, supple Respiratory: clear to auscultation, normal air movement, No congested cough, No crackles/rales, No diminished breath sounds, No intercostal retraction, No labored breathing, No other, No respirations, No tactile fremitus, No wheezing Cardiovascular: nl pulses, regular rate and rhythm, No S3, No S4, No bruits, No diastolic murmur, No edema, No gallop, No irregular rhythm, No jugular venous distention (JVD), No murmurs/extra sounds, No other, No rub, No systolic murmur Gastrointestinal: nl liver, spleen, non-tender, soft, No ascites, No bowel sounds, No distended, No firm, No hepatomegaly, No mass , No other, No rebound or guarding, No splenomegaly, No surgical scars, No tender Musculoskeletal: nl extremities to inspection Extremities: normal pulses, other (left toe lesion), No calf tenderness, No clubbing, No cyanosis, No edema, No palpable cord, No pitting pedal edema, No tenderness Neurological: HARNESS [employer]UTTER II-XII intact, nl mental status, nl speech, nl strength Skin: nl turgor Lymph: nl lymph nodes Results Result Diagram: 01/28/17 0525 01/28/17 0525 Results 24 hrs Laboratory Tests Test 01/27/17 17:32 01/27/17 21:27 01/28/17 01:07 01/28/17 05:25 Bedside Glucose 84 241 H 165 Anion Gap 17 H Basophils # 0.0 Basophils % 0.5 Blood Urea Nitrogen 13 Calcium Level 8.9 Carbon Dioxide Level 25 Chloride Level 101 Creatinine 1.68 H Eosinophils # 0.4 Eosinophils % 4.4 Glucose Level 70 # Hematocrit 26.9 L Hemoglobin 8.6 L Lymphocytes # 1.2 Lymphocytes % 14.7 L Mean Corpuscular Hemoglobin 28.1 L Mean Corpuscular Hemoglobin Concent 32.0 Mean Corpuscular Volume 87.9 Mean Platelet Volume 8.9 Monocytes # 0.9 Monocytes % 10.5 Neutrophils # 5.7 Neutrophils % 69.4 Nucleated Red Blood Cells # 0.0 Nucleated Red Blood Cells % 0.0 Platelet Count 577 H Potassium Level 4.2 Red Blood Count 3.06 L Red Cell Distribution Width 13.6 Sodium Level 139 White Blood Count 8.2 Test 01/28/17 07:41 01/28/17 09:48 01/28/17 12:36 Bedside Glucose 67 L 197 216 Medications Medications Current Medications Ondansetron HCl (Zofran Inj) 4 mg Q6H PRN IV NAUSEA AND/OR VOMITING; Start at 20:30 Acetaminophen (Tylenol Tab) 650 mg Q6H PRN PO PAIN LEVEL 1-3 OR FEVER; Start at 20:30 Acetaminophen/ Hydrocodone Bitart ([place] (5/325)) 1 tab Q6H PRN PO MODERATE PAIN LEVEL 4-6; Start 01/24/17 at 20:30 Morphine Sulfate (morphine) 2 mg Q4H PRN IV SEVERE PAIN LEVEL 7-10; Start 01/24 at 20:30 Magnesium Hydroxide (Milk Of Mag) 30 ml DAILY PRN PO CONSTIPATION; Start at 20:30 Sodium Biphosphate/ Sodium Phosphate (Fleet Enema) 133 ml DAILY PRN [place] CONSTIPATION; Start 01/24/17 at 20:30 Pantoprazole (Protonix Tab) 40 mg DAILY@06 PO Last administered on 01/27/17 06 :08; Admin Dose 40 MG; Start 01/25/17 at 06:00 Heparin Sodium (Porcine) 5000 unit 5,000 unit Q12 SC Last administered on 02:00; Admin Dose 5,000 UNIT; Start 01/24/17 at 21:00; Status Future Hold Sodium Chloride (1/2 NS) 1,000 ml @ 75 mls/hr [id number] IV Last administered on 01/28/17 13:01; Admin Dose 75 MLS/HR; Start 01/24/17 at 20:19 Lorazepam 0.5 mg 0.5 mg Q6H PRN IV ANXIETY; Start 01/24/17 at 20:30 Piperacillin Sod/ Tazobactam Sod (Zosyn 3.375gm/ 100 ml (Pmx)) 100 ml @ 200 mls /hr Q6 IVPB Last administered on 01/28/17 12:38; Admin Dose 200 MLS/HR; Start 01/25/17 at 00:00 Hydralazine HCl (Apresoline) 10 mg Q6H PRN IV ELEVATED BLOOD PRESSURE; Start at 20:30 Clonidine (Catapres) 0.1 mg Q6H PRN PO ELEVATED BLOOD PRESSURE; Start 01/24/17 at 20:30 Nitroglycerin (Nitroglycerin (Sl Tab) 0.4 Mg) 1 tab Q5M PRN SL ANGINA; Start at 20:30 Atorvastatin Calcium (Lipitor) 20 mg HS PO Last administered on 01/28/17 01:59 ; Admin Dose 20 MG; Start 01/24/17 at 21:00 Diphenhydramine HCl (Benadryl) 50 mg QHS PRN PO sleep Last administered on 01/28 01:58; Admin Dose 50 MG; Start 01/24/17 at 20:30 Ergocalciferol (Drisdol) 50,000 unit Fr@09 PO ; Start 01/31/17 at 09:00 Miscellaneous Information 1 ea NOTE XX ; Start 01/24/17 at 21:00 Glucose (Glutose) 15 gm Q15M PRN PO DECREASED GLUCOSE; Start 01/24/17 at 21:00 Glucose (Glutose) 22.5 gm Q15M PRN PO DECREASED GLUCOSE; Start 01/24/17 at 21: 00 Dextrose (D50w Syringe) 25 ml Q15M PRN IV DECREASED GLUCOSE; Start 01/24/17 at 21:00 Dextrose (D50w Syringe) 50 ml Q15M PRN IV DECREASED GLUCOSE; Start 01/24/17 at 21:00 Glucagon (Glucagen) 1 mg Q15M PRN IM DECREASED GLUCOSE; Start 01/24/17 at 21:00 Glucose (Glutose) 15 gm Q15M PRN BUCCAL DECREASED GLUCOSE; Start 01/24/17 at 21 :00 Gabapentin (Neurontin) 1,800 mg HS PO Last administered on 01/28/17 01:58; Admin Dose 1,800 MG; Start 01/25/17 at 01:31 Patient Own Medication 2 ea HS PO Last administered on 01/28/17 01:58; Admin Dose 2 EA; Start 01/25/17 at 21:00 Aspirin (Halfprin) 81 mg HS PO Last administered on 01/28/17 01:59; Admin Dose 81 MG; Start 01/25/17 at 21:00 Folic Acid (Folic Acid) 1 mg HS PO Last administered on 01/28/17 01:59; Admin Dose 1 MG; Start 01/25/17 at 21:00 Collagenase (Santyl) 1 applic DAILY TOP Last administered on 01/28/17 08:52; Admin Dose 1 APPLIC; Start 01/25/17 at 17:00 Docusate Sodium 100 mg 100 mg Q12H PO Last administered on 01/28/17 01:58; Admin Dose 100 MG; Start 01/26/17 at 20:30 Ceftriaxone Sodium (Rocephin) 50 ml @ 100 mls/hr Q24H IVPB Last administered on 01/27/17 23:08; Admin Dose 100 MLS/HR; Start 01/26/17 at 23:00; Stop at 12:00 Rifampin (Rifampin) 600 mg DAILY PO Last administered on 01/28/17 08:50; Admin Dose 600 MG; Start 01/27/17 at 09:00; Stop 03/12/17 at 12:00 ASHTYN TORREZ MD Jan 28, 2017 14:40
--- NOTE | 2017-01-28 20:23 | RADRPT ---
PROCEDURE: XR Chest. CLINICAL INDICATION: Preoperative. TECHNIQUE: Single frontal view. COMPARISON: 10/14/2015. FINDINGS: The lungs are clear. The heart size is normal. There is no pleural effusion. There is no pneumothorax. IMPRESSION: 1. Normal chest radiograph. RPTAT: QQ .Tristan Currie MD, MD Date Time Electronically viewed and signed by .Tristan Currie MD, MD on 01/28/2017 20:23 .R/
[2017-01-28 22:50] VITALS: BP 158/67; RESP 18
[2017-01-28] MEDS: CEFTRIAXONE 1 GM/50 ML (PMX) 50 ML IVPB SCH (23:08)
[2017-01-29] VITALS (9 sets, daily range): BP systolic 135–167; BP diastolic 61–80; PULSE 64–86; RESP 12–19
[2017-01-29] MEDS: PIPER-TAZO 3.375 GM IV (PMX) 100 ML IVPB SCH ×3 (00:07→12:13)
[2017-01-29] MEDS: FOLIC ACID 1 MG TAB PO SCH (00:59)
[2017-01-29] MEDS: ASPIRIN (EC) 81 MG TAB PO SCH (00:59)
[2017-01-29] MEDS: GABAPENTIN 300 MG CAP PO SCH (01:00)
[2017-01-29] MEDS: ATORVASTATIN 20 MG TAB PO SCH (01:01)
[2017-01-29] MEDS: MELATONIN 10 MG PO SCH (01:01)
[2017-01-29 05:50] LABS: ADD SCAN DIFF NO
[2017-01-29 05:54] LABS: BASOPHIL # 0.1 10^3/ul (0.0-0.1); BASOPHILS % 0.8 % (0.0-2.0); EOSINOPHILS # 0.3 10^3/ul (0.0-0.5); EOSINOPHILS % 4.1 % (0.0-7.0); HEMATOCRIT 28.1 % (42.0-52.0); HEMOGLOBIN 9.2 g/dl (14.0-18.0); LYMPHOCYTES # 1.2 10^3/ul (0.8-2.9); LYMPHOCYTES % 14.9 % (15.0-51.0); MEAN CORPUSCULAR HEMOGLOBIN 28.5 pg (29.0-33.0); MEAN CORPUSCULAR HGB CONC 32.7 g/dl (32.0-37.0); MEAN PLATELET VOLUME 8.4 fl (7.4-10.4); MONOCYTE # 0.7 10^3/ul (0.3-0.9); MONOCYTES % 9.4 % (0.0-11.0); NEUTROPHIL # 5.5 10^3/ul (1.6-7.5); NEUTROPHILS % 70.2 % (39.0-77.0); PLATELET COUNT 561 10^3/UL (140-415); RED BLOOD COUNT 3.23 10^6/ul (4.70-6.10); RED CELL DISTRIBUTION WIDTH 13.6 % (11.5-14.5); WHITE BLOOD COUNT 7.8 10^3/ul (4.8-10.8)
[2017-01-29] MEDS: PANTOPRAZOLE (EC) 40 MG TAB PO SCH (06:00)
[2017-01-29 06:11] LABS: INR 1.16; PROTIME 14.8 Sec (12.2-14.2); PT RATIO 1.2
[2017-01-29 06:12] LABS: PARTIAL THROMBOPLASTIN TIME 29.2 Sec (25.0-35.0)
[2017-01-29 06:13] LABS: POTASSIUM 4.1 mmol/L (3.5-5.1)
[2017-01-29 06:15] LABS: CREATININE 1.54 mg/dl (0.61-1.24)
[2017-01-29] MEDS: DEXTROSE 5%-0.45% NACL 1,000 ML IV SCH ×2 (06:46→19:50)
[2017-01-29] MEDS ORDERED: SEVOFLURANE 15 MIN ONE (07:00)
[2017-01-29] MEDS: HUMALOG PUMP SC SCH ×4 (07:30→21:00)
[2017-01-29] MEDS: ACCU-CHEK XX SCH ×7 (07:30→21:00)
--- NOTE | 2017-01-29 08:21 | RADRPT ---
Vent Rate: 68 bpm RR Interval: 0 msec PA Interval: 158 msec QRS Duration: 90 msec QT Interval: 396 msec QTC Interval: 421 msec P-R-T [place]: 43 - 70 - 64 degrees Normal sinus rhythm Normal ECG Electronically Signed By: Chad Sanz [id number]
[2017-01-29] MEDS: DOCUSATE SODIUM 100 MG CAP PO SCH ×2 (08:30→20:30)
[2017-01-29] MEDS: COLLAGENASE 30 GM TUBE TOP SCH (09:00)
[2017-01-29] MEDS: RIFAMPIN 300 MG CAP PO SCH (09:00)
--- NOTE | 2017-01-29 14:02 | CONS ---
Date/Time of Note Date/Time of Note DATE: 01/29/17 TIME: 14:02 Assessment/Plan Assessment/Plan Chief Complaint/Hosp Course SUBJECTIVE: No acute changes. Alert, awaiting for surgery, no fevers MICROBIOLOGY: Wound culture grew Staphylococcus aureus and alpha hemolytic strep species. ANTIMICROBIALS: Rocephin, Rifampin PHYSICAL EXAMINATION: GENERAL: This is a well-developed elderly man who is alert, in no distress. HEENT: Head atraumatic, normocephalic. Sclerae anicteric. Buccal mucosa pink. NECK: Supple, trachea midline. CHEST: Rise symmetrical. Breath sounds clear. HEART: S1, S2. ABDOMEN: Soft, bowel tones present. EXTREMITIES: Without cyanosis. Left foot dressing intact. ASSESSMENT: 1. Left foot cellulitis, osteomyelitis, abscess. 2. Diabetes. 3. Hypertension. 4. Peripheral vascular disease. PLAN: The patient remains stable, dc Rifampin, continue Rocephin, scheduled for surgery today, will follow [facility] patient [facility] staff Problems: Consultation Date/Type/Reason Admit Date/Time Jan 24, 2017 at 19:34 Type of Consultation: ID Referring Provider: TOY PRESTON Exam/Review of Systems Vital Signs Vitals Vital Signs Date Time Temp Pulse Resp B/P Pulse Ox O2 Delivery O2 Flow Rate FiO2 01/29/17 08:44 98.1 67 18 135/74 97 01/29/17 00:00 Room Air Intake and Output 01/28/17 01/28/17 01/29/17 15:00 23:00 07:00 Intake Total 100 ml 1655 ml 350 ml Balance 100 ml 1655 ml 350 ml Results Result Diagram: 01/29/17 0524 01/29/17 0534 Results 24 hrs Laboratory Tests Test 01/28/17 15:34 01/28/17 17:32 01/28/17 21:05 01/29/17 01:14 Bedside Glucose 294 H 196 70 179 Test 01/29/17 04:52 01/29/17 05:24 01/29/17 05:34 01/29/17 08:26 Bedside Glucose 83 130 White Blood Count 7.8 Red Blood Count 3.23 L Hemoglobin 9.2 L Hematocrit 28.1 L Mean Corpuscular Volume 87.0 Mean Corpuscular Hemoglobin 28.5 L Mean Corpuscular Hemoglobin Concent 32.7 Red Cell Distribution Width 13.6 Platelet Count 561 H Mean Platelet Volume 8.4 Neutrophils % 70.2 Lymphocytes % 14.9 L Monocytes % 9.4 Eosinophils % 4.1 Basophils % 0.8 Nucleated Red Blood Cells % 0.0 Neutrophils # 5.5 Lymphocytes # 1.2 Monocytes # 0.7 Eosinophils # 0.3 Basophils # 0.1 Nucleated Red Blood Cells # 0.0 Prothrombin Time 14.8 H Prothrombin Time Ratio 1.2 INR International Normalized Ratio 1.16 Activated Partial Thromboplast Time 29.2 Sodium Level 140 Potassium Level 4.1 Chloride Level 102 Carbon Dioxide Level 26 Anion Gap 16 Blood Urea Nitrogen 12 Creatinine 1.54 H Glucose Level 80 Calcium Level 9.0 Test 01/29/17 10:20 Bedside Glucose 135 Medications Medications Current Medications Ondansetron HCl (Zofran Inj) 4 mg Q6H PRN IV NAUSEA AND/OR VOMITING; Start at 20:30 Acetaminophen (Tylenol Tab) 650 mg Q6H PRN PO PAIN LEVEL 1-3 OR FEVER; Start at 20:30 Acetaminophen/ Hydrocodone Bitart (Dysart (5/325)) 1 tab Q6H PRN PO MODERATE PAIN LEVEL 4-6; Start 01/24/17 at 20:30 Morphine Sulfate (morphine) 2 mg Q4H PRN IV SEVERE PAIN LEVEL 7-10; Start 01/24 at 20:30 Magnesium Hydroxide (Milk Of Mag) 30 ml DAILY PRN PO CONSTIPATION; Start at 20:30 Sodium Biphosphate/ Sodium Phosphate (Fleet Enema) 133 ml DAILY PRN [place] CONSTIPATION; Start 01/24/17 at 20:30 Pantoprazole (Protonix Tab) 40 mg DAILY@06 PO Last administered on 01/27/17 06 :08; Admin Dose 40 MG; Start 01/25/17 at 06:00 Heparin Sodium (Porcine) (Heparin (5000 Units/0.5 ml)) 5,000 unit Q12 SC Last administered on 01/28/17 02:00; Admin Dose 5,000 UNIT; Start 01/24/17 at 21:00 ; Status Future Hold Lorazepam 0.5 mg 0.5 mg Q6H PRN IV ANXIETY; Start 01/24/17 at 20:30 Piperacillin Sod/ Tazobactam Sod (Zosyn 3.375gm/ 100 ml (Pmx)) 100 ml @ 200 mls /hr Q6 IVPB Last administered on 01/29/17 12:13; Admin Dose 200 MLS/HR; Start 01/25/17 at 00:00 Hydralazine HCl (Apresoline) 10 mg Q6H PRN IV ELEVATED BLOOD PRESSURE; Start at 20:30 Clonidine (Catapres) 0.1 mg Q6H PRN PO ELEVATED BLOOD PRESSURE; Start 01/24/17 at 20:30 Nitroglycerin (Nitroglycerin (Sl Tab) 0.4 Mg) 1 tab Q5M PRN SL ANGINA; Start at 20:30 Atorvastatin Calcium (Lipitor) 20 mg HS PO Last administered on 01/29/17 01:01 ; Admin Dose 20 MG; Start 01/24/17 at 21:00 Diphenhydramine HCl (Benadryl) 50 mg QHS PRN PO sleep Last administered on 01/28 01:58; Admin Dose 50 MG; Start 01/24/17 at 20:30 Ergocalciferol (Drisdol) 50,000 unit Fr@09 PO ; Start 01/31/17 at 09:00 Miscellaneous Information 1 ea NOTE XX ; Start 01/24/17 at 21:00 Glucose (Glutose) 15 gm Q15M PRN PO DECREASED GLUCOSE; Start 01/24/17 at 21:00 Glucose (Glutose) 22.5 gm Q15M PRN PO DECREASED GLUCOSE; Start 01/24/17 at 21: 00 Dextrose (D50w Syringe) 25 ml Q15M PRN IV DECREASED GLUCOSE; Start 01/24/17 at 21:00 Dextrose (D50w Syringe) 50 ml Q15M PRN IV DECREASED GLUCOSE; Start 01/24/17 at 21:00 Glucagon (Glucagen) 1 mg Q15M PRN IM DECREASED GLUCOSE; Start 01/24/17 at 21:00 Glucose (Glutose) 15 gm Q15M PRN BUCCAL DECREASED GLUCOSE; Start 01/24/17 at 21 :00 Gabapentin (Neurontin) 1,800 mg HS PO Last administered on 01/29/17 01:00; Admin Dose 1,800 MG; Start 01/25/17 at 01:31 Patient Own Medication 2 ea HS PO Last administered on 01/29/17 01:01; Admin Dose 2 EA; Start 01/25/17 at 21:00 Aspirin (Halfprin) 81 mg HS PO Last administered on 01/29/17 00:59; Admin Dose 81 MG; Start 01/25/17 at 21:00 Folic Acid (Folic Acid) 1 mg HS PO Last administered on 01/29/17 00:59; Admin Dose 1 MG; Start 01/25/17 at 21:00 Collagenase (Santyl) 1 applic DAILY TOP Last administered on 01/28/17 08:52; Admin Dose 1 APPLIC; Start 01/25/17 at 17:00 Docusate Sodium 100 mg 100 mg Q12H PO Last administered on 01/28/17 01:58; Admin Dose 100 MG; Start 01/26/17 at 20:30 Ceftriaxone Sodium (Rocephin) 50 ml @ 100 mls/hr Q24H IVPB Last administered on 01/28/17 23:08; Admin Dose 100 MLS/HR; Start 01/26/17 at 23:00; Stop at 12:00 Rifampin (Rifampin) 600 mg DAILY PO Last administered on 01/28/17 08:50; Admin Dose 600 MG; Start 01/27/17 at 09:00; Stop 03/12/17 at 12:00 Influenza Virus Vaccine 0.5 ml 0.5 ml ONCE ONCE IM* ; Start 01/30/17 at 09:00; Stop 01/30/17 at 09:01 Dextrose/Sodium Chloride (D5-1/2ns) 1,000 ml @ 75 mls/hr [id number] IV Last administered on 01/29/17 06:46; Admin Dose 75 MLS/HR; Start 01/29/17 at 06:30 REBEKAH SEGAL NP Jan 29, 2017 14:02
--- NOTE | 2017-01-29 14:53 | PN ---
DATE: 01/29/2017 TIME OF EVALUATION: 1300 SUBJECTIVE DATA: Denies any pain. The patient n.p.o. for surgical intervention. OBJECTIVE DATA: VITAL SIGNS: Temperature 98.1, pulse rate 67, respiratory rate 18, blood pressure 135/74, oxygen saturation 97% on room air. GENERAL: This is a well-built, well-nourished male patient lying in bed in no apparent distress. HEENT: Head normocephalic and atraumatic. Eyes: Anicteric sclerae. Conjunctivae clear. ENT: Nasal septum is midline. Oral mucosa is dry. NECK: Supple. No JVD noticed. RESPIRATORY: Bilaterally clear to auscultation. No adventitious breath sounds heard. No use of accessory muscles of respiration. CARDIAC: Regular rate and rhythm. No murmurs heard. ABDOMEN: Soft, nontender and nondistended. Bowel sounds positive in all 4 quadrants. GENITOURINARY: Deferred. EXTREMITIES: No cyanosis, no clubbing, no edema. Peripheral pulses palpable. Left lower extremity foot dressing. NEUROLOGIC: The patient is awake, alert and oriented. Cranial nerves are grossly intact. LABORATORY AND DIAGNOSTIC DATA: WBC 7.8, hemoglobin 9.0, hematocrit 28.1, platelet count 561. Sodium 140, potassium 4.1, chloride 102, carbon dioxide 26 , anion gap 16, BUN 12, creatinine 1.54, glucose 80, calcium 130, anion gap 9.0. ASSESSMENT AND PLAN: 1. Osteomyelitis of the fifth metatarsal of the left foot with near complete destruction of the head of the fifth metatarsal. The patient on antibiotics as per Infectious Disease. Wound culture positive for Staph aureus and alpha hemolytic Streptococcus. The patient is scheduled for surgical intervention. 2. Type 1 diabetes mellitus. The patient on a patient-actuated pump. Blood sugars well controlled. Hemoglobin A1c 10.9. Endocrinology following. 3. Chronic kidney disease. Will use nephrotoxic medications with caution. Continue to monitor the BUN and creatinine closely. 4. Essential hypertension. Continue antihypertensives. Blood pressure fairly well-controlled. 5. Diabetes with underlying diabetic neuropathy. Continue gabapentin. 6. Dyslipidemia. Continue statins. 7. Fluid, electrolytes and nutrition. Carbohydrate controlled diet. Currently n.p.o. for procedure. 8. Deep venous thrombosis prophylaxis. Subcutaneous heparin. 9. Gastrointestinal prophylaxis with proton pump inhibitors. 10. Plan. Continue antibiotics as per Infectious Disease. Await surgical intervention. The case was discussed with Dr. Phipps. NUNU PHIPPS MD, AM/LIDA Conf#: [id number] DID#: [id number] MTDD
[2017-01-29] MEDS ORDERED: MIDAZOLAM 1 MG/ML 2 ML INJ ONE (16:21)
[2017-01-29] MEDS ORDERED: FENTAnyl 50 MCG/ML VIAL ONE (16:21)
[2017-01-29] MEDS ORDERED: PROPOFOL 20 ML ONE (16:21)
[2017-01-29] MEDS ORDERED: LIDOCAINE 2% (SDV) 5 ML INJ ONE (16:21)
[2017-01-29] MEDS ORDERED: LIDOCAINE 2% (MDV) 20 ML INJ ONE (16:35)
[2017-01-29] MEDS ORDERED: BUPIVACAINE 0.5% (SDV) 30 ML INJ ONE (16:35)
[2017-01-29] MEDS ORDERED: METOCLOPRAMIDE 10 MG INJ ONE (16:43)
[2017-01-29] MEDS ORDERED: ONDANSETRON 4 MG INJ ONE (16:43)
[2017-01-29] MEDS ORDERED: POLYMYXIN/BACITRACIN 1L IRRIG IRR ONE (16:58)
[2017-01-29] MEDS ORDERED: BUPIVACAINE 0.5% 30 ML VIAL INJ ONE (16:59)
[2017-01-29] MEDS ORDERED: MEPERIDINE 25 MG INJ IV PRN (17:00)
[2017-01-29] MEDS ORDERED: ONDANSETRON 4 MG INJ IV PRN (17:00)
[2017-01-29] MEDS ORDERED: DIPHENHYDRAMINE 50 MG INJ IV PRN (17:00)
[2017-01-29] MEDS ORDERED: FENTAnyl 50 MCG/ML VIAL IV PRN (17:00)
[2017-01-29] MEDS ORDERED: PROCHLORPERAZINE 10 MG INJ IV PRN (17:00)
[2017-01-29] MEDS ORDERED: HYDROmorphONE (0.2 MG/ML) 10ML SYG IV PRN (17:00)
[2017-01-29] MEDS ORDERED: EPHEDrine SULFATE 50 MG/5 ML SYG ONE (17:12)
--- NOTE | 2017-01-29 18:41 | CONS ---
Date/Time of Note Date/Time of Note DATE: 01/29/17 TIME: 18:39 Assessment/Plan Assessment/Plan Chief Complaint/Hosp Course 7-year-old male with a long-term history of diabetes mellitus type 1. He developed diabetes mellitus at the age of 7 and in the last 2 years has been on insulin pump. He was admitted once previously to this facility in October 2015 with influenza induced diabetic ketoacidosis. He has been on a pump for some time in fact the pump is currently using is 2 years old. His main production manager is Dr. Barton in [place]. They had discussed the possibility of using a continuous glucose monitor and a closed loop system for him however there is some insurance constraints regarding this. The patient reports that in the last 9 months since he has had the foot injury (please see HPI) his sugars have been much more variable and not as well-controlled. Please note he also reports some dental issues Problems: (1) Type 1 diabetes mellitus with diabetic chronic kidney disease Status: Chronic Comment: His blood sugars been adequately controlled. He is now postoperative and as such we need to be careful to make sure he does not start dropping his sugars. He will need to go out on antibiotics for defined period of time which will pull most likely be 2 weeks. Infectious disease will direct this Qualifiers: Chronic kidney disease stage: stage 3 (moderate) Qualified Code: E10.22 - Type 1 diabetes mellitus with stage 3 chronic kidney disease Consultation Date/Type/Reason Admit Date/Time Jan 24, 2017 at 19:34 Initial Consult Date 01/27/17 Type of Consultation: Endocrinology Reason for Consultation Diabetes mellitus type 1; osteomyelitis left fifth metatarsal Referring Provider: TOY PRESTON 24 HR Interval Summary Free Text/Dictation Patient was seen in recovery immediately post surgical amputation/ray amputation fifth metatarsal. He reports he is feeling well Exam/Review of Systems Vital Signs Vitals Vital Signs Date Time Temp Pulse Resp B/P Pulse Ox O2 Delivery O2 Flow Rate FiO2 01/29/17 17:58 80 14 158/73 98 Room Air 01/29/17 17:36 98.8 Intake and Output 01/28/17 01/28/17 01/29/17 15:00 23:00 07:00 Intake Total 100 ml 1655 ml 350 ml Balance 100 ml 1655 ml 350 ml Exam Constitutional: alert, oriented Respiratory: clear to auscultation, normal air movement Cardiovascular: nl pulses, regular rate and rhythm Results Result Diagram: 01/29/17 0524 01/29/17 0534 Results 24 hrs Laboratory Tests Test 01/28/17 21:05 01/29/17 01:14 01/29/17 04:52 01/29/17 05:24 Bedside Glucose 70 179 83 White Blood Count 7.8 Red Blood Count 3.23 L Hemoglobin 9.2 L Hematocrit 28.1 L Mean Corpuscular Volume 87.0 Mean Corpuscular Hemoglobin 28.5 L Mean Corpuscular Hemoglobin Concent 32.7 Red Cell Distribution Width 13.6 Platelet Count 561 H Mean Platelet Volume 8.4 Neutrophils % 70.2 Lymphocytes % 14.9 L Monocytes % 9.4 Eosinophils % 4.1 Basophils % 0.8 Nucleated Red Blood Cells % 0.0 Neutrophils # 5.5 Lymphocytes # 1.2 Monocytes # 0.7 Eosinophils # 0.3 Basophils # 0.1 Nucleated Red Blood Cells # 0.0 Test 01/29/17 05:34 01/29/17 08:26 01/29/17 10:20 01/29/17 12:10 Prothrombin Time 14.8 H Prothrombin Time Ratio 1.2 INR International Normalized Ratio 1.16 Activated Partial Thromboplast Time 29.2 Sodium Level 140 Potassium Level 4.1 Chloride Level 102 Carbon Dioxide Level 26 Anion Gap 16 Blood Urea Nitrogen 12 Creatinine 1.54 H Glucose Level 80 Calcium Level 9.0 Bedside Glucose 130 135 142 Test 01/29/17 14:35 01/29/17 17:33 Bedside Glucose 149 156 Medications Medications Current Medications Ondansetron HCl (Zofran Inj) 4 mg Q6H PRN IV NAUSEA AND/OR VOMITING; Start at 20:30 Acetaminophen (Tylenol Tab) 650 mg Q6H PRN PO PAIN LEVEL 1-3 OR FEVER; Start at 20:30 Acetaminophen/ Hydrocodone Bitart (Veteran (5/325)) 1 tab Q6H PRN PO MODERATE PAIN LEVEL 4-6; Start 01/24/17 at 20:30 Morphine Sulfate (morphine) 2 mg Q4H PRN IV SEVERE PAIN LEVEL 7-10; Start 01/24 at 20:30 Magnesium Hydroxide (Milk Of Mag) 30 ml DAILY PRN PO CONSTIPATION; Start at 20:30 Sodium Biphosphate/ Sodium Phosphate (Fleet Enema) 133 ml DAILY PRN [place] CONSTIPATION; Start 01/24/17 at 20:30 Pantoprazole (Protonix Tab) 40 mg DAILY@06 PO Last administered on 01/27/17 06 :08; Admin Dose 40 MG; Start 01/25/17 at 06:00 Heparin Sodium (Porcine) (Heparin (5000 Units/0.5 ml)) 5,000 unit Q12 SC Last administered on 01/28/17 02:00; Admin Dose 5,000 UNIT; Start 01/24/17 at 21:00 ; Status Future Hold Lorazepam (Ativan) 0.5 mg Q6H PRN IV ANXIETY; Start 01/24/17 at 20:30 Hydralazine HCl (Apresoline) 10 mg Q6H PRN IV ELEVATED BLOOD PRESSURE; Start at 20:30 Clonidine (Catapres) 0.1 mg Q6H PRN PO ELEVATED BLOOD PRESSURE; Start 01/24/17 at 20:30 Nitroglycerin (Nitroglycerin (Sl Tab) 0.4 Mg) 1 tab Q5M PRN SL ANGINA; Start at 20:30 Atorvastatin Calcium (Lipitor) 20 mg HS PO Last administered on 01/29/17 01:01 ; Admin Dose 20 MG; Start 01/24/17 at 21:00 Diphenhydramine HCl (Benadryl) 50 mg QHS PRN PO sleep Last administered on 01/28 01:58; Admin Dose 50 MG; Start 01/24/17 at 20:30 Ergocalciferol (Drisdol) 50,000 unit Fr@09 PO ; Start 01/31/17 at 09:00 Miscellaneous Information 1 ea NOTE XX ; Start 01/24/17 at 21:00 Glucose (Glutose) 15 gm Q15M PRN PO DECREASED GLUCOSE; Start 01/24/17 at 21:00 Glucose (Glutose) 22.5 gm Q15M PRN PO DECREASED GLUCOSE; Start 01/24/17 at 21: 00 Dextrose (D50w Syringe) 25 ml Q15M PRN IV DECREASED GLUCOSE; Start 01/24/17 at 21:00 Dextrose (D50w Syringe) 50 ml Q15M PRN IV DECREASED GLUCOSE; Start 3/17/17 at 21:00 Glucagon (Glucagen) 1 mg Q15M PRN IM DECREASED GLUCOSE; Start 01/24/17 at 21:00 Glucose (Glutose) 15 gm Q15M PRN BUCCAL DECREASED GLUCOSE; Start 01/24/17 at 21 :00 Gabapentin (Neurontin) 1,800 mg HS PO Last administered on 01/29/17 01:00; Admin Dose 1,800 MG; Start 01/25/17 at 01:31 Patient Own Medication 2 ea HS PO Last administered on 01/29/17 01:01; Admin Dose 2 EA; Start 01/25/17 at 21:00 Aspirin (Halfprin) 81 mg HS PO Last administered on 01/29/17 00:59; Admin Dose 81 MG; Start 01/25/17 at 21:00 Folic Acid (Folic Acid) 1 mg HS PO Last administered on 01/29/17 00:59; Admin Dose 1 MG; Start 01/25/17 at 21:00 Collagenase (Santyl) 1 applic DAILY TOP Last administered on 01/28/17 08:52; Admin Dose 1 APPLIC; Start 01/25/17 at 17:00 Docusate Sodium 100 mg 100 mg Q12H PO Last administered on 01/28/17 01:58; Admin Dose 100 MG; Start 01/26/17 at 20:30 Ceftriaxone Sodium (Rocephin) 50 ml @ 100 mls/hr Q24H IVPB Last administered on 01/28/17 23:08; Admin Dose 100 MLS/HR; Start 01/26/17 at 23:00; Stop at 12:00 Influenza Virus Vaccine 0.5 ml 0.5 ml ONCE ONCE IM* ; Start 01/30/17 at 09:00; Stop 01/30/17 at 09:01 Dextrose/Sodium Chloride (D5-1/2ns) 1,000 ml @ 75 mls/hr [id number] IV Last administered on 01/29/17 06:46; Admin Dose 75 MLS/HR; Start 01/29/17 at 06:30 ASHANTI BRYANT MD Jan 29, 2017 18:41
--- NOTE | 2017-01-29 21:04 | RADRPT ---
PROCEDURE: XR Foot. CLINICAL INDICATION: Osteomyelitis status post surgery. TECHNIQUE: Left foot x-rays, three views. COMPARISON: MRI left foot 01/24/2017. FINDINGS: Bony mineralization appears normal. The fifth toe and mid distal portion of the fifth metatarsal ibrahim s been removed. Mild postoperative air and edema are seen within the soft tissues of the lateral as pect of the foot. The remainder of the osseous structures are unremarkable. Joint spaces are intac t. Fine vascular calcifications are seen within the soft tissues. IMPRESSION: Amputation of the fifth toe and mid distal portion of the fifth metatarsal. Arteriosclerosis. RPTAT: HLST .Merle Ham MD, MD Date Time Electronically viewed and signed by .Merle Ham MD, MD on 01/29/2017 21:04 .T/
[2017-01-30] MEDS: ATORVASTATIN 20 MG TAB PO SCH (01:16)
[2017-01-30] MEDS: FOLIC ACID 1 MG TAB PO SCH (01:16)
[2017-01-30] MEDS: CEFTRIAXONE 1 GM/50 ML (PMX) 50 ML IVPB SCH (01:16)
[2017-01-30] MEDS: ASPIRIN (EC) 81 MG TAB PO SCH (01:16)
[2017-01-30] MEDS: GABAPENTIN 300 MG CAP PO SCH (01:16)
[2017-01-30] MEDS: MELATONIN 10 MG PO SCH (01:17)
[2017-01-30] MEDS: DIPHENHYDRAMINE 50 MG CAP PO PRN (01:25)
[2017-01-30 01:58] VITALS: BP 137/75; PULSE 54
[2017-01-30] MEDS: PANTOPRAZOLE (EC) 40 MG TAB PO SCH (05:07)
[2017-01-30] MEDS: DEXTROSE 5%-0.45% NACL 1,000 ML IV SCH (05:40)
[2017-01-30 05:54] LABS: ADD SCAN DIFF NO
[2017-01-30 06:00] LABS: BASOPHIL # 0.1 10^3/ul (0.0-0.1); BASOPHILS % 0.5 % (0.0-2.0); EOSINOPHILS # 0.3 10^3/ul (0.0-0.5); EOSINOPHILS % 2.9 % (0.0-7.0); HEMATOCRIT 27.2 % (42.0-52.0); HEMOGLOBIN 8.7 g/dl (14.0-18.0); LYMPHOCYTES # 1.2 10^3/ul (0.8-2.9); LYMPHOCYTES % 12.6 % (15.0-51.0); MEAN CORPUSCULAR HEMOGLOBIN 28.2 pg (29.0-33.0); MEAN PLATELET VOLUME 8.8 fl (7.4-10.4); MONOCYTE # 0.8 10^3/ul (0.3-0.9); MONOCYTES % 8.6 % (0.0-11.0); PLATELET COUNT 557 10^3/UL (140-415); RED BLOOD COUNT 3.09 10^6/ul (4.70-6.10); RED CELL DISTRIBUTION WIDTH 13.8 % (11.5-14.5); WHITE BLOOD COUNT 9.3 10^3/ul (4.8-10.8)
[2017-01-30 06:25] LABS: POTASSIUM 4.4 mmol/L (3.5-5.1)
[2017-01-30 06:28] LABS: CREATININE 1.58 mg/dl (0.61-1.24)
[2017-01-30] MEDS: ACCU-CHEK XX SCH ×4 (07:30→15:05)
[2017-01-30] MEDS: HUMALOG PUMP SC SCH ×2 (07:30→11:30)
[2017-01-30] MEDS: DOCUSATE SODIUM 100 MG CAP PO SCH (08:30)
[2017-01-30 08:41] VITALS: BP 136/63; RESP 18
[2017-01-30] MEDS ORDERED: INFLUENZA VIRUS VACCINE 0.5 ML SYG IM* ONE (09:00)
[2017-01-30] MEDS: COLLAGENASE 30 GM TUBE TOP SCH (09:00)
--- NOTE | 2017-01-30 11:57 | HPN ---
Date/Time of Note Date/Time of Note DATE: 01/29/17 TIME: 11:57 Interval H&P Admission Note Pt. seen H&P reviewed: No system changes MARIZA CHAPPELL DPM Jan 30, 2017 11:57
--- NOTE | 2017-01-30 12:15 | OPR ---
Date/Time of Note Date/Time of Note DATE: 01/30/17 TIME: 11:57 Operative Report Procedure Date: Jan 29, 2017 Preoperative Diagnosis Open wound left foot Osteomyelitis of left foot Left foot cellulitis Diabetes mellitus Peripheral neuropathy Postoperative Diagnosis Open wound left foot Osteomyelitis of left foot Left foot cellulitis Diabetes mellitus Peripheral neuropathy Operation Performed Left fifth ray amputation Surgeon: MARIZA CHAPPELL DPM Anesthesia: general Estimated Blood Loss: 0 - 10 ml's Specimens Left fifth ray Complications: None Pt Condition Post Procedure: stable Disposition: PACU Indications This is a 61 year old male with multiple medical problems with fulminant osteomyelitis of the left fifth ray recalcitrant to non surgical management. Patient was seen at the clinic and was found to have continuous purulent drainage from the left foot. Recommendation was made for surgical management which includes fifth ray amputation of the left foot. Risks and complications of this type surgery was discussed with patient in great detail. Risks and complications of this type of surgery was discussed with patient in great detail. Risks and complications include, but are not limited to, postop pain, no guarantee or warranty was given or implied as to the outcome of the procedure either in verbal or written form. chronic pain and disability, failure of surgery to correct the problem, need for additional surgical procedures, wound infection, allergic reactions to suture material, deep venous thrombosis, limb loss, loss of life. Patient seems to understand the risks and complications discussed and agrees to the procedure. An informed consent was signed, obtained and placed in the chart. Operative\Procedure Findings Fulminant infection in the left foot fifth ray including the fifth metatarsal and fifth toe with purulent drainage. Open wound left foot with necrotic tissue exposed. Procedure Description The patient was seen in the preoperative area and was counseled extensively on the type surgery. All questions were answered. Informed consent was obtained, signed and placed in the chart. The patient was then taken to the operating room and was placed on the operating table in the supine position. All bony prominences were padded properly. The patient was placed under general anesthesia by the anesthesiologist. The left lower extremity was scrubbed, prepped and draped in usual aseptic manner. Attention was directed to the lateral aspect of the left foot where a 2 x 2 centimeter open wound was noted with necrotic capsule and tendon. There was purulent drainage present. An incision was outlined encompassing the fifth ray and #10 blade was used for incision. Bleeders were cauterized as necessary using electrocautery. The entire fifth ray was exposed. Prior tissue was sharply debrided and excised. A power saw was used to cut the fifth metatarsal close to the base and the fifth ray including the fifth toe was removed and amputated and passed the back table for pathology. Copious amounts of sterile normal saline was used for irrigation. The wound was prepped for closure. Subcutaneous closure was done using 3-0 Vicryl and skin closure was done using 2-0 nylon simple suture technique. Postoperative injection of 0.5% Marcaine plain was given. Sterile dressing was applied. The patient was transferred to recovery room with vital signs stable and vascular status intact to the left foot. The patient will be sent back to the floor after postoperative monitoring. Postoperative orders are written. Patient will be seen in house. Nonweightbearing ordered for the left foot. Continue antibiotics. MARIZA CHAPPELL DPM Jan 30, 2017 12:08
--- NOTE | 2017-01-30 13:35 | PN ---
Date/Time of Note Date/Time of Note DATE: 01/30/17 TIME: 13:31 Assessment/Plan Lines/Catheters IV Catheter Type (from [facility]): Peripheral IV Mckeon in Place (from [facility]): No Assessment/Plan Problems: (1) Acquired absence of left foot (2) Diabetes, polyneuropathy (3) Peripheral vascular disease Assessment/Plan Patient to be discharged today. Bandages were changed. Remain nonweightbearing on the left foot. Follow-up next week in clinic. Exam/Review of Systems Vital Signs Vitals Vital Signs Date Time Temp Pulse Resp B/P Pulse Ox O2 Delivery O2 Flow Rate FiO2 01/30/17 08:41 98.3 49 18 136/63 98 01/29/17 17:58 Room Air Intake and Output 01/29/17 01/29/17 01/30/17 15:00 23:00 07:00 Intake Total 100 ml 1400 ml 990 ml Output Total 10 ml Balance 100 ml 1390 ml 990 ml Results Result Diagram: 01/30/17 0525 01/30/17 0525 MARIZA CHAPPELL DPM Jan 30, 2017 13:35
--- NOTE | 2017-01-30 14:13 | CONS ---
Date/Time of Note Date/Time of Note DATE: 01/30/17 TIME: 14:11 Assessment/Plan Assessment/Plan Chief Complaint/Hosp Course SUBJECTIVE: No acute changes. Alert, feel good MICROBIOLOGY: Wound culture grew Staphylococcus aureus and alpha hemolytic strep species. ANTIMICROBIALS: Rocephin PHYSICAL EXAMINATION: GENERAL: This is a well-developed elderly man who is alert, in no distress. HEENT: Head atraumatic, normocephalic. Sclerae anicteric. Buccal mucosa pink. NECK: Supple, trachea midline. CHEST: Rise symmetrical. Breath sounds clear. HEART: S1, S2. ABDOMEN: Soft, bowel tones present. EXTREMITIES: Without cyanosis. Left foot dressing intact. ASSESSMENT: 1. Left foot cellulitis, osteomyelitis==> s/p TMA 01/29/17 2. Diabetes. 3. Hypertension. 4. Peripheral vascular disease. PLAN: Remains stable post-op, continue Rocephin, anticipate dc on PO Augmentin for 7 more days DW patient DW staff Problems: Consultation Date/Type/Reason Admit Date/Time Jan 24, 2017 at 19:34 Type of Consultation: id Referring Provider: TOY PRESTON Exam/Review of Systems Vital Signs Vitals Vital Signs Date Time Temp Pulse Resp B/P Pulse Ox O2 Delivery O2 Flow Rate FiO2 01/30/17 08:41 98.3 49 18 136/63 98 01/29/17 17:58 Room Air Intake and Output 01/29/17 01/29/17 01/30/17 15:00 23:00 07:00 Intake Total 100 ml 1400 ml 990 ml Output Total 10 ml Balance 100 ml 1390 ml 990 ml Results Result Diagram: 01/30/17 0525 01/30/17 0525 Results 24 hrs Laboratory Tests Test 01/29/17 14:35 01/29/17 17:33 01/29/17 22:26 01/30/17 05:25 Bedside Glucose 149 156 378 H White Blood Count 9.3 Red Blood Count 3.09 L Hemoglobin 8.7 L Hematocrit 27.2 L Mean Corpuscular Volume 88.0 Mean Corpuscular Hemoglobin 28.2 L Mean Corpuscular Hemoglobin Concent 32.0 Red Cell Distribution Width 13.8 Platelet Count 557 H Mean Platelet Volume 8.8 Neutrophils % 75.0 Lymphocytes % 12.6 L Monocytes % 8.6 Eosinophils % 2.9 Basophils % 0.5 Nucleated Red Blood Cells % 0.0 Neutrophils # 7.0 Lymphocytes # 1.2 Monocytes # 0.8 Eosinophils # 0.3 Basophils # 0.1 Nucleated Red Blood Cells # 0.0 Sodium Level 140 Potassium Level 4.4 Chloride Level 102 Carbon Dioxide Level 27 Anion Gap 15 Blood Urea Nitrogen 16 Creatinine 1.58 H Glucose Level 91 Calcium Level 9.0 Magnesium Level 1.9 Test 01/30/17 05:37 01/30/17 08:03 01/30/17 12:06 Bedside Glucose 96 58 L 276 H Medications Medications Current Medications Ondansetron HCl (Zofran Inj) 4 mg Q6H PRN IV NAUSEA AND/OR VOMITING; Start at 20:30 Acetaminophen (Tylenol Tab) 650 mg Q6H PRN PO PAIN LEVEL 1-3 OR FEVER; Start at 20:30 Acetaminophen/ Hydrocodone Bitart ([place] (5/325)) 1 tab Q6H PRN PO MODERATE PAIN LEVEL 4-6; Start 01/24/17 at 20:30 Morphine Sulfate (morphine) 2 mg Q4H PRN IV SEVERE PAIN LEVEL 7-10; Start 01/24 at 20:30 Magnesium Hydroxide (Milk Of Mag) 30 ml DAILY PRN PO CONSTIPATION; Start at 20:30 Sodium Biphosphate/ Sodium Phosphate (Fleet Enema) [address] CONSTIPATION; Start 01/24/17 at 20:30 Pantoprazole (Protonix Tab) 40 mg DAILY@06 PO Last administered on 01/27/17 06 :08; Admin Dose 40 MG; Start 01/25/17 at 06:00 Heparin Sodium (Porcine) (Heparin (5000 Units/0.5 ml)) 5,000 unit Q12 SC Last administered on 01/28/17 02:00; Admin Dose 5,000 UNIT; Start 01/24/17 at 21:00 ; Status Future Hold Lorazepam (Ativan) 0.5 mg Q6H PRN IV ANXIETY; Start 01/24/17 at 20:30 Hydralazine HCl (Apresoline) 10 mg Q6H PRN IV ELEVATED BLOOD PRESSURE; Start at 20:30 Clonidine (Catapres) 0.1 mg Q6H PRN PO ELEVATED BLOOD PRESSURE; Start 01/24/17 at 20:30 Nitroglycerin (Nitroglycerin (Sl Tab) 0.4 Mg) 1 tab Q5M PRN SL ANGINA; Start at 20:30 Atorvastatin Calcium (Lipitor) 20 mg HS PO Last administered on 01/30/17 01:16 ; Admin Dose 20 MG; Start 01/24/17 at 21:00 Diphenhydramine HCl (Benadryl) 50 mg QHS PRN PO sleep Last administered on 01/30 01:25; Admin Dose 50 MG; Start 01/24/17 at 20:30 Ergocalciferol (Drisdol) 50,000 unit Fr@09 PO ; Start 01/31/17 at 09:00 Miscellaneous Information 1 ea NOTE XX ; Start 01/24/17 at 21:00 Glucose (Glutose) 15 gm Q15M PRN PO DECREASED GLUCOSE; Start 01/24/17 at 21:00 Glucose (Glutose) 22.5 gm Q15M PRN PO DECREASED GLUCOSE; Start 01/24/17 at 21: 00 Dextrose (D50w Syringe) 25 ml Q15M PRN IV DECREASED GLUCOSE; Start 01/24/17 at 21:00 Dextrose (D50w Syringe) 50 ml Q15M PRN IV DECREASED GLUCOSE; Start 01/24/17 at 21:00 Glucagon (Glucagen) 1 mg Q15M PRN IM DECREASED GLUCOSE; Start 01/24/17 at 21:00 Glucose (Glutose) 15 gm Q15M PRN BUCCAL DECREASED GLUCOSE; Start 01/24/17 at 21 :00 Gabapentin (Neurontin) 1,800 mg HS PO Last administered on 01/30/17 01:16; Admin Dose 1,800 MG; Start 01/25/17 at 01:31 Patient Own Medication 2 ea HS PO Last administered on 01/30/17 01:17; Admin Dose 2 EA; Start 01/25/17 at 21:00 Aspirin (Halfprin) 81 mg HS PO Last administered on 01/30/17 01:16; Admin Dose 81 MG; Start 01/25/17 at 21:00 Folic Acid (Folic Acid) 1 mg HS PO Last administered on 01/30/17 01:16; Admin Dose 1 MG; Start 01/25/17 at 21:00 Collagenase (Santyl) 1 applic DAILY TOP Last administered on 01/28/17 08:52; Admin Dose 1 APPLIC; Start 01/25/17 at 17:00 Docusate Sodium 100 mg 100 mg Q12H PO Last administered on 01/28/17 01:58; Admin Dose 100 MG; Start 01/26/17 at 20:30 Ceftriaxone Sodium 50 ml @ 100 mls/hr Q24H IVPB Last administered on 01:16; Admin Dose 100 MLS/HR; Start 01/26/17 at 23:00; Stop 03/12/17 at 12: 00 Dextrose/Sodium Chloride (D5-1/2ns) 1,000 ml @ 75 mls/hr [id number] IV Last administered on 01/30/17 05:40; Admin Dose 75 MLS/HR; Start 01/29/17 at 06:30 REBEKAH SEGAL NP Jan 30, 2017 14:13
--- NOTE | 2017-01-30 15:52 | PDOCDIS ---
Discharge Instructions DIAGNOSIS Discharge Diagnosis: Osteomyelitis of the left fifth metatarsals and phalanges. CONDITION Patient Condition: Stable HOME CARE INSTRUCTIONS: Special Diet: Carbohydrate controlled diet. FOLLOW UP/APPOINTMENTS Appointments Olvin Tillman DPM Podiatry Office Address: [facility] [place] [address] Office OTHER ORDERS: Other Orders: 1. Resume home medications. Complete the course of antibiotics. 2. Follow a carbohydrate controlled diet. 3. Non-weightbearing on the left lower extremity. 4. Follow-up with Dr. Tillman at the [facility] the next week. NUNU POP NP Jan 30, 2017 15:52
[2017-01-30] MEDS ORDERED: AMOX1TAB10 PO (15:53)
--- NOTE | 2017-01-30 17:00 | CONS ---
Date/Time of Note Date/Time of Note DATE: 01/30/17 TIME: 16:53 Assessment/Plan Assessment/Plan Problems: (1) Osteomyelitis of left foot Status: Resolved Comment: status post amputation of the 5th metatarsal (2) Type 1 diabetes mellitus with diabetic foot infection Status: Chronic Comment: Patient on insulin pump for glycemic control. Blood sugars high today due to use of dextrosed fluid during and after surgery. Once fluids discontinued and patient resumed insulin pump insulin delivery blood glucose levels improved. (3) Type 1 diabetes mellitus with diabetic polyneuropathy Status: Chronic Comment: Patient on insulin pump for glycemic control. Blood sugars high today due to use of dextrosed fluid during and after surgery. Once fluids discontinued and patient resumed insulin pump insulin delivery blood glucose levels improved. Additional Assessment/Plan Plan for discharge home today. Follow up with Dr. Barton (manager) within the next 2 weeks. Consultation Date/Type/Reason Admit Date/Time Jan 24, 2017 at 19:34 Initial Consult Date 01/27/17 Type of Consultation: Endo Reason for Consultation Diabetes management Referring Provider: TOY PRESTON 24 HR Interval Summary Free Text/Dictation Patient is post amputation 5th metatarsal of the left foot. Denies pain. Exam/Review of Systems Vital Signs Vitals Vital Signs Date Time Temp Pulse Resp B/P Pulse Ox O2 Delivery O2 Flow Rate FiO2 01/30/17 08:41 98.3 49 18 136/63 98 01/29/17 17:58 Room Air Intake and Output 01/29/17 01/29/17 01/30/17 15:00 23:00 07:00 Intake Total 100 ml 1400 ml 990 ml Output Total 10 ml Balance 100 ml 1390 ml 990 ml Exam Constitutional: alert, oriented Psych: no complaints Head: normocephalic Eyes: EOMI, nl conjunctiva ENMT: mucosa pink and moist Neck: supple Respiratory: clear to auscultation Cardiovascular: regular rate and rhythm Gastrointestinal: soft Musculoskeletal: other (noted muscle wasting hands and feet secondary to neuropathy) Extremities: other (Left foot bandage) Results POC glucose reviewed Result Diagram: 01/30/17 0525 01/30/17 0525 Results 24 hrs Laboratory Tests Test 01/29/17 17:33 01/29/17 22:26 01/30/17 05:25 01/30/17 05:37 Bedside Glucose 156 378 H 96 White Blood Count 9.3 Red Blood Count 3.09 L Hemoglobin 8.7 L Hematocrit 27.2 L Mean Corpuscular Volume 88.0 Mean Corpuscular Hemoglobin 28.2 L Mean Corpuscular Hemoglobin Concent 32.0 Red Cell Distribution Width 13.8 Platelet Count 557 H Mean Platelet Volume 8.8 Neutrophils % 75.0 Lymphocytes % 12.6 L Monocytes % 8.6 Eosinophils % 2.9 Basophils % 0.5 Nucleated Red Blood Cells % 0.0 Neutrophils # 7.0 Lymphocytes # 1.2 Monocytes # 0.8 Eosinophils # 0.3 Basophils # 0.1 Nucleated Red Blood Cells # 0.0 Sodium Level 140 Potassium Level 4.4 Chloride Level 102 Carbon Dioxide Level 27 Anion Gap 15 Blood Urea Nitrogen 16 Creatinine 1.58 H Glucose Level 91 Calcium Level 9.0 Magnesium Level 1.9 Test 01/30/17 08:03 01/30/17 12:06 01/30/17 15:14 Bedside Glucose 58 L 276 H 222 H Medications Medications Current Medications Ondansetron HCl (Zofran Inj) 4 mg Q6H PRN IV NAUSEA AND/OR VOMITING; Start at 20:30 Acetaminophen (Tylenol Tab) 650 mg Q6H PRN PO PAIN LEVEL 1-3 OR FEVER; Start at 20:30 Acetaminophen/ Hydrocodone Bitart ([place] (5/325)) 1 tab Q6H PRN PO MODERATE PAIN LEVEL 4-6; Start 01/24/17 at 20:30 Morphine Sulfate (morphine) 2 mg Q4H PRN IV SEVERE PAIN LEVEL 7-10; Start 01/24 at 20:30 Magnesium Hydroxide (Milk Of Mag) 30 ml DAILY PRN PO CONSTIPATION; Start at 20:30 Sodium Biphosphate/ Sodium Phosphate (Fleet Enema) 133 ml DAILY PRN [place] CONSTIPATION; Start 01/24/17 at 20:30 Pantoprazole (Protonix Tab) 40 mg DAILY@06 PO Last administered on 01/27/17 06 :08; Admin Dose 40 MG; Start 01/25/17 at 06:00 Heparin Sodium (Porcine) (Heparin (5000 Units/0.5 ml)) 5,000 unit Q12 SC Last administered on 01/28/17 02:00; Admin Dose 5,000 UNIT; Start 01/24/17 at 21:00 ; Status Future Hold Lorazepam (Ativan) 0.5 mg Q6H PRN IV ANXIETY; Start 01/24/17 at 20:30 Hydralazine HCl (Apresoline) 10 mg Q6H PRN IV ELEVATED BLOOD PRESSURE; Start at 20:30 Clonidine (Catapres) 0.1 mg Q6H PRN PO ELEVATED BLOOD PRESSURE; Start 01/24/17 at 20:30 Nitroglycerin (Nitroglycerin (Sl Tab) 0.4 Mg) 1 tab Q5M PRN SL ANGINA; Start at 20:30 Atorvastatin Calcium (Lipitor) 20 mg HS PO Last administered on 01/30/17 01:16 ; Admin Dose 20 MG; Start 01/24/17 at 21:00 Diphenhydramine HCl (Benadryl) 50 mg QHS PRN PO sleep Last administered on 01/30 01:25; Admin Dose 50 MG; Start 01/24/17 at 20:30 Ergocalciferol (Drisdol) 50,000 unit Fr@09 PO ; Start 01/31/17 at 09:00 Miscellaneous Information 1 ea NOTE XX ; Start 01/24/17 at 21:00 Glucose (Glutose) 15 gm Q15M PRN PO DECREASED GLUCOSE; Start 01/24/17 at 21:00 Glucose (Glutose) 22.5 gm Q15M PRN PO DECREASED GLUCOSE; Start 01/24/17 at 21: 00 Dextrose (D50w Syringe) 25 ml Q15M PRN IV DECREASED GLUCOSE; Start 01/24/17 at 21:00 Dextrose (D50w Syringe) 50 ml Q15M PRN IV DECREASED GLUCOSE; Start 01/24/17 at 21:00 Glucagon (Glucagen) 1 mg Q15M PRN IM DECREASED GLUCOSE; Start 01/24/17 at 21:00 Glucose (Glutose) 15 gm Q15M PRN BUCCAL DECREASED GLUCOSE; Start 01/24/17 at 21 :00 Gabapentin (Neurontin) 1,800 mg HS PO Last administered on 01/30/17 01:16; Admin Dose 1,800 MG; Start 01/25/17 at 01:31 Patient Own Medication 2 ea HS PO Last administered on 01/30/17 01:17; Admin Dose 2 EA; Start 01/25/17 at 21:00 Aspirin (Halfprin) 81 mg HS PO Last administered on 01/30/17 01:16; Admin Dose 81 MG; Start 01/25/17 at 21:00 Folic Acid (Folic Acid) 1 mg HS PO Last administered on 01/30/17 01:16; Admin Dose 1 MG; Start 01/25/17 at 21:00 Collagenase (Santyl) 1 applic DAILY TOP Last administered on 01/28/17 08:52; Admin Dose 1 APPLIC; Start 01/25/17 at 17:00 Docusate Sodium 100 mg 100 mg Q12H PO Last administered on 01/28/17 01:58; Admin Dose 100 MG; Start 01/26/17 at 20:30 Ceftriaxone Sodium 50 ml @ 100 mls/hr Q24H IVPB Last administered on 01:16; Admin Dose 100 MLS/HR; Start 01/26/17 at 23:00; Stop 03/12/17 at 12: 00 Dextrose/Sodium Chloride (D5-1/2ns) 1,000 ml @ 75 mls/hr [id number] IV Last administered on 01/30/17 05:40; Admin Dose 75 MLS/HR; Start 01/29/17 at 06:30 DESTINY DAILEY MD Jan 30, 2017 17:00
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
[2017-01-31] MEDS ORDERED: ERGOCALCIFEROL 50,000 UNIT CAP PO SCH (09:00)
== END 2017-01-30 21:17 | disposition home health service (06) | DRG 617 ==
LOC: E/R 12:04 → PP2 19:34
PROVIDERS: ADMIT Hospitalist; ATTEND Hospitalist
PROC: 0Y6Y0Z0 Detachment at Left 5th Toe, Complete, Open Approach (ICD-10-PCS; principal; 2017-01-29 16:00)
DX: E10.69 Type 1 diabetes mellitus with other specified complication (principal); M86.172 Other acute osteomyelitis, left ankle and foot; E10.22 Type 1 diabetes mellitus with diabetic chronic kidney disease; E10.40 Type 1 diabetes mellitus with diabetic neuropathy, unspecified; L02.612 Cutaneous abscess of left foot; E10.621 Type 1 diabetes mellitus with foot ulcer; I12.9 Hypertensive chronic kidney disease with stage 1 through stage 4 chronic kidney disease, or unspecified chronic kidney disease; E78.5 Hyperlipidemia, unspecified; E10.42 Type 1 diabetes mellitus with diabetic polyneuropathy; N18.3 Chronic kidney disease, stage 3 (moderate); L03.032 Cellulitis of left toe; L97.524 Non-pressure chronic ulcer of other part of left foot with necrosis of bone; E10.3393 Type 1 diabetes mellitus with moderate nonproliferative diabetic retinopathy without macular edema, bilateral; B95.61 Methicillin susceptible Staphylococcus aureus infection as the cause of diseases classified elsewhere; B95.0 Streptococcus, group A, as the cause of diseases classified elsewhere; F32.9 Major depressive disorder, single episode, unspecified; E10.51 Type 1 diabetes mellitus with diabetic peripheral angiopathy without gangrene; Z96.41 Presence of insulin pump (external) (internal)
CPT/HCPCS: 36415; 71010; 73718; 80048; 80053; 80061; 81001; 81003; 82150; 82962; 83036; 83690; 83735; 84100; 84439; 84443; 84484; 85025; 85610; 85730; 87040; 87070; 87081; 87086; 88307; 90686; 93005; 96365; 96375; 97162; J0696; J1644; J1815; J2250; J2405; J2543; J2765; J3010; J3370; J7042; J7050

== ENCOUNTER 2018-07-30 23:01 | Inpatient (IN) | END 2018-08-02 18:15 | disposition home or self-care (01) | DRG 683 ==

== ENCOUNTER 2018-10-19 15:41 | Emergency (ER) | END 2018-10-19 18:50 | disposition home or self-care (01) ==

== ENCOUNTER 2019-02-18 21:06 | Emergency (ER) | payer OTHER ==
[~2019-02-18] VITALS: Wt 88.0 kg
[~2019-02-18 21:06] MED LIST changes: +AMLO2.5T78 PO; -ASPI-535 PO; +ASPI-817 PO; +BEN50 PO; -BENA20TA65 PO; +ERGO500013 PO; -FURO-110 PO; +GABA-528 PO; -GABA600T PO; +INSU100C SQ; -LEVO500T10 PO; +ZOLP5TAB7 PO
[2019-02-18 21:14] VITALS: BP 180/88; PULSE 87; RESP 18
[2019-02-19] MEDS ORDERED: BACITUD TOP (01:57)
[2019-02-19] MEDS ORDERED: BACITRACIN 0.9 GM OINT TOP ONE (02:00)
--- NOTE | 2019-02-19 02:33 | ERD ---
ER Documentation Chief Complaint Chief Complaint LEFT GREAT TOE WOUND SINCE LAST NIGHT. BLEEDING INTERMITTENT CONTROL HPI History of Present Illness: Patient coming in today with complaint of wound to left great toe. Patient reports having a bag over foot last night to take shower, patient has previous wound that is under care so he is unable to get it wet. Patient reports trying to take the back of his leg using scissors and he nicked left great toe. Patient with history of insulin-dependent diabetes. 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 Patient concerned with uncontrolled bleeding to affected toe. At home pharmacological/nonpharmacological treatment for symptoms: Patient has used gauze and tape to control bleeding to toe Denies social concerns; Denies recent foreign travel ROS All systems reviewed and are negative except as per history of present illness. Medications Home Meds Active Scripts Bacitracin* (Bacitracin Oint (UD)*) 1 Applic Oint, 1 APPLIC TOP QHS for infection prevention for 7 Days, PKT APPLY TO Prov:SULY LEUNG V FOOD BROKER 02/19/19 Amlodipine Besylate* (Amlodipine Besylate*) 2.5 Mg Tablet, 2.5 MG PO DAILY, #30 TAB Prov:NUNU POP FOOD BROKER 08/02/18 Reported Medications Zolpidem Tartrate* (Zolpidem Tartrate*) 5 Mg Tablet, 5 MG PO QHS PRN for INSOMNIA, #30 TAB 07/30/18 Insulin Lispro (Humalog) 100 Unit/1 Ml Cartridge, 0 SQ SLIDING SCALE, EA 07/30/18 Gabapentin* (Gabapentin*) 800 Mg Tablet, 800 MG PO QHS, #90 TAB 07/30/18 Ergocalciferol (Vitamin D2) (VITAMIN D2) 50,000 Unit Capsule, [address] UNIT PO Q THURS, CAP 07/30/18 Diphenhydramine Hcl* (Benadryl*) 50 Mg Cap, 50 MG PO QHS PRN for ITCHING, CAP 07/30/18 Atorvastatin Calcium* (Atorvastatin Calcium*) 20 Mg Tablet, 20 MG PO QHS, #30 TAB 07/30/18 Aspirin* (Aspirin* EC) 81 Mg Tablet.dr, 81 MG PO DAILY, TAB 07/30/18 Allergies Allergies: Coded Allergies: No Known Drug Allergies (Unverified Allergy, Unknown, 07/30/18) PMhx/Soc History of Surgery: Yes (appendectomy,bilat eye sx,bilat hands,L knee,L small toe,L foot debridement) Anesthesia Reaction: No Hx Neurological Disorder: Yes (neuropathy) Hx Respiratory Disorders: No Hx Cardiac Disorders: Yes (HTN,cholesteremia) Hx Psychiatric Problems: Yes Hx Miscellaneous Medical Probl: Yes (3rd degree burn L foot,juvenile diabetes) Hx Alcohol Use: Yes (occasionally) Hx Substance Use: No Hx Tobacco Use: No Smoking Status: Never smoker FmHx Family History: No diabetes, No coronary disease Physical Exam Vitals Vital Signs Date Temp Pulse Resp B/P (MAP) Pulse Ox O2 O2 Flow FiO2 Time Delivery Rate 02/18/19 98.2 87 18 180/88 98 21:14 (118) Physical Exam Const: No acute distress Head: Atraumatic Eyes: Normal Conjunctiva ENT: Normal External Ears, Nose and Mouth. Neck: Full range of motion. No meningismus. Resp: Clear to auscultation bilaterally Cardio: Regular rate and rhythm, no murmurs Abd: Soft, non tender, non distended. Normal bowel sounds Skin: No petechiae or rashes Back: No midline or flank tenderness Ext: No cyanosis, or edema. Abrasion and 1/4 cm laceration noted to left great toe, bleeding controlled, no signs of infection. Neur: Awake and alert Psych: Normal Mood and Affect Results 24 hrs Current Medications Medications Dose Sig/Zelda Start Time Status Last (Trade) Ordered Route PRN Stop Time Admin Dose Reason Admin Bacitracin 1 applic ONCE ONCE 02/19/19 DC 02/19/19 (Bacitracin TOP 02:00 02:17 Oint (Ud)) 02/19/19 02:01 Procedures/MDM ED course includes a thorough examination and history. ED course includes wound care; use of NS to clean the wound and application of antibiotic. Medications: Bacitracin Imaging:--- Labs: ---- Low suspicion for life-threatening medical emergency. Low suspicion for endocrinologic/infectious emergency that requires hospitalization or immediate intervention. Otherwise healthy patient presenting with constellation of symptoms likely representing toe laceration/abrasion as characterized by history, physical exam findings. No respiratory distress, otherwise relatively well appearing and nontoxic. Patient educated on diagnoses, prescriptions, follow-up care, return precautions. Strict return precautions given for worsening condition; questions answered discharge. Disposition for discharge with followup in 2 days with PCP/clinic. Reiterated importance of strict follow-up with primary care doctor or numerical tool programmer for follow-up to ensure that it is healing properly. Patient reports that he will not be able to go to primary care doctor on 02/22/19 due to flying to [place]. Reiterated that patient should seek medical attention with primary care doctor to ensure proper healing, patient verbalizes understanding of instructions. Patient educated on signs to watch for infection. Departure Diagnosis: Primary Impression: Laceration of toe of left foot Encounter type: initial encounter Toe: great toe Damage to nail status: without damage Foreign body presence: without foreign body Qualified Codes: S91.112A - Laceration without foreign body of left great toe without damage to nail, initial encounter Additional Impression: History of diabetes mellitus Condition: Stable Patient Instructions: Wound Care, Wound Care Referrals: [facility] YOU HAVE RECEIVED A MEDICAL SCREENING EXAM AND THE RESULTS INDICATE THAT YOU DO NOT HAVE A CONDITION THAT REQUIRES URGENT TREATMENT IN THE EMERGENCY DEPARTMENT. FURTHER EVALUATION AND TREATMENT OF YOUR CONDITION CAN WAIT UNTIL YOU ARE SEEN IN YOUR DOCTORS OFFICE WITHIN THE NEXT 1-2 DAYS. IT IS YOUR RESPONSIBILITY TO MAKE AN APPOINTMENT FOR [facility]UP [facility]. IF YOU HAVE A PRIMARY DOCTOR --you should call your primary doctor and schedule an appointment IF YOU DO NOT HAVE A PRIMARY DOCTOR YOU CAN CALL OUR PHYSICIAN REFERRAL HOTLINE AT IF YOU CAN NOT AFFORD TO SEE A PHYSICIAN YOU CAN CHOSE FROM THE FOLLOWING [facility] [address] [facility]. [facility] [address] [facility] [facility] [address] [facility] [facility] [address] [facility] [facility] [address] [facility]. [facility]. [address] [facility] YOU HAVE RECEIVED A MEDICAL SCREENING EXAM AND THE RESULTS INDICATE THAT YOU DO NOT HAVE A CONDITION THAT REQUIRES URGENT TREATMENT IN THE EMERGENCY DEPARTMENT. FURTHER EVALUATION AND TREATMENT OF YOUR CONDITION CAN WAIT UNTIL YOU ARE SEEN IN YOUR DOCTORS OFFICE WITHIN THE NEXT 1-2 DAYS. IT IS YOUR RESPONSIBILITY TO MAKE AN APPOINTMENT FOR [facility]-UP CARE. IF YOU HAVE A PRIMARY DOCTOR --you should call your primary doctor and schedule and appointment IF YOU DO NOT HAVE A PRIMARY DOCTOR YOU CAN CALL OUR PHYSICIAN REFERRAL HOTLINE AT . IF YOU CAN NOT AFFORD TO SEE A PHYSICIAN YOU CAN CHOSE FROM THE FOLLOWING [facility] INSTITUTIONS: [facility] [address] [place] [address] [facility] [address] [place] [address] [facility] [address] [place] [address] Additional Instructions: Thank you very much for allowing us to participate in your care. Your health and safety is our top priority at [facility]. It is important to read all discharge instructions and education provided in your discharge packet. Call your primary care doctor TOMORROW for an appointment during the next 2-4 days and bring all the information and medications prescribed. It is very very important to follow-up with your primary care doctor and possibly numerical tool programmer if you have. Is important to keep the area clean and dry and covered. Frequent wound checks morning and at night to assess for signs of infection. Have prescriptions filled and follow precisely the directions on the label. Bacitracin is an antibiotic ointment that he can applied to the abrasion/small laceration to the great toe to prevent infection. If the symptoms get worse and your provider is unavailable, return to the Emergency Department immediately. SULY LEUNG NP Feb 19, 2019 02:33
== END 2019-02-19 02:26 | disposition home or self-care (01) ==
LOC: FTE 21:06
DX: S91.112A Laceration without foreign body of left great toe without damage to nail, initial encounter (principal); E11.9 Type 2 diabetes mellitus without complications; W27.2XXA Contact with scissors, initial encounter; Y92.9 Unspecified place or not applicable; Z79.4 Long term (current) use of insulin; Z79.82 Long term (current) use of aspirin
CPT/HCPCS: Z7502; Z7610; 99283